=== PATIENT | female | born 1960 | race African-American/Black ===

== ENCOUNTER 2016-04-27 18:49 | Inpatient (IN) | payer OTHER ==
[2016-04-27 19:51] LABS: BASOPHIL 1.5 % (0-2.0); EOSINOPHIL 1.5 % (0-4.5); MCH 31.6 pg (25.7-33.7); MCHC 32.9 g/dl (32.0-36.0); MEAN PLT VOLUME 10.2 fl (7.5-11.1); NEUTROPHILS 68.9 % (42.8-82.8); PLATELET COUNT 231 K/MM3 (134-434); RDW 14.1 % (11.6-15.6); WHITE BLOOD COUNT 5.6 K/mm3 (4.0-10.0)
[2016-04-27] MEDS ORDERED: morphine CARPU-JECT 2 MG/1 ML DISP.SYRIN IVPUSH ONE (19:55)
--- NOTE | 2016-04-27 19:55 | PDOC ---
History of Present Illness - General History Source: Patient Exam Limitations: No Limitations - History of Present Illness Initial Comments: 04/27/16 20:08 The patient is a 55 year old female with a PMHx of diabetes, thyroid disease, GERD, stomach ulcers who presents to the ED with epigastric abdominal pain for 4 months. She states the pain radiates to RUQ and LUQ. Patient reports recently being worked up at [facility] for abdominal pain, including an US, CT, endoscopy that all came back normal. She reports she has no appetite due to pain. She reports only drinking vodka and juice today. She states she is a currently daily alcohol drinker. She denies fever, chills, nausea, vomiting, diarrhea. She denies dysuria or any other urinary complaints. She denies chest pain, SOB, palpitations. <Teri Tarango - Last Filed: 04/27/16 21:38> <Ivana Diane - Last Filed: 04/28/16 21:52> - General Chief Complaint: Pain, Acute Stated Complaint: ABD PAIN Time Seen by Provider: 04/27/16 19:02 Past History <Teri Tarango - Last Filed: 04/27/16 21:38> - Past Medical History Diabetes: Yes Thyroid Disease: Yes Other medical history: GERD, STOMACH ULCER - Psycho/Social/Smoking Cessation Hx Anxiety: No Suicidal Ideation: No Smoking Status: Yes Smoking History: Current some day smoker Years of Tobacco Use: 20 Have you smoked in the past 12 months: No Number of Cigarettes Smoked Daily: 2 Information on smoking cessation initiated: No Hx Alcohol Use: Yes (DAILY WINE) Drug/Substance Use Hx: No Substance Use Type: None <vIana Diane - Last Filed: 04/28/16 21:52> - Past Medical History Allergies/Adverse Reactions: Allergies Allergy/AdvReac Type Severity Reaction Status Date / Time aspirin Allergy Verified 04/27/16 19:02 Penicillins Allergy Verified 04/27/16 19:02 sulfur [From Sulfur-8] Allergy Verified 04/27/16 19:02 sulfur dioxide Allergy Verified 04/27/16 19:02 CHEESE Allergy Uncoded 04/27/16 19:02 Home Medications: Ambulatory Orders Levothyroxine [Synthroid] 50 mcg PO DAILY 03/25/12 Omeprazole 40 mg PO DAILY 04/27/16 Sitagliptin Phosphate [Januvia] 100 mg PO DAILY 04/27/16 Review of Systems - Review of Systems Able to Perform ROS?: Yes Comments:: 04/27/16 20:09 GENERAL/CONSTITUTIONAL: No fever or chills. No weakness. HEAD, EYES, EARS, NOSE AND THROAT: No change in vision. No ear pain or discharge. No sore throat. CARDIOVASCULAR: No chest pain or shortness of breath. RESPIRATORY: No cough, wheezing, or hemoptysis. GASTROINTESTINAL: + epigastric pain, RUQ pain, LUQ pain. No nausea, vomiting, diarrhea or constipation. GENITOURINARY: No dysuria, frequency, or change in urination. MUSCULOSKELETAL: No joint or muscle swelling or pain. No neck or back pain. SKIN: No rash NEUROLOGIC: No headache, vertigo, loss of consciousness, or change in strength/ sensation. ENDOCRINE: No increased thirst. No abnormal weight change. HEMATOLOGIC/LYMPHATIC: No anemia, easy bleeding, or history of blood clots. ALLERGIC/IMMUNOLOGIC: No hives or skin allergy. <Teri Tarango - Last Filed: 04/27/16 21:38> *Physical Exam - Vital Signs Last Vital Signs Temp Pulse Resp BP Pulse Ox 97.9 F 81 19 155/62 95 04/27/16 19:03 04/27/16 19:03 04/27/16 19:03 04/27/16 19:03 04/27/16 19:03 - Physical Exam Comments: 04/27/16 20:09 GENERAL: Awake, alert, and fully oriented, in no acute distress HEAD: No signs of trauma EYES: PERRLA, EOMI, sclera anicteric, conjunctiva clear ENT: Auricles normal inspection, hearing grossly normal, nares patent, oropharynx clear without exudates. Moist mucosa NECK: Normal ROM, supple, no lymphadenopathy, JVD, or masses LUNGS: Breath sounds equal, clear to auscultation bilaterally. No wheezes, and no crackles HEART: Regular rate and rhythm, normal S1 and S2, no murmurs, rubs or gallops ABDOMEN: Moderate epigastric tenderness. Tenderness on side to palpation. Soft, normoactive bowel sounds. No guarding, no rebound. No masses EXTREMITIES: Normal range of motion, no edema. No clubbing or cyanosis. No cords, erythema, or tenderness NEUROLOGICAL: Cranial nerves II through XII grossly intact. Normal speech, normal gait SKIN: Warm, Dry, normal turgor, no rashes or lesions noted. <Teri Tarango - Last Filed: 04/27/16 21:38> - Vital Signs Last Vital Signs Temp Pulse Resp BP Pulse Ox 97.9 F 81 19 155/62 95 04/27/16 19:03 04/27/16 19:03 04/27/16 19:03 04/27/16 19:03 04/27/16 19:03 <Ivana Diane - Last Filed: 04/28/16 21:52> ED Treatment Course - LABORATORY CBC & Chemistry Diagram: 04/27/16 19:20 04/27/16 19:20 - ADDITIONAL ORDERS Additional order review: 04/27/16 19:20 RBC 4.58 MCV 96.0 MCHC 32.9 RDW 14.1 MPV 10.2 Neutrophils % 68.9 D Lymphocytes % 20.1 D Monocytes % 8.0 Eosinophils % 1.5 Basophils % 1.5 - RADIOLOGY Radiograph Interpretation: 04/27/16 21:38 US of Abdomen Reported by: Dr. Kya Brown Impression: Cholelithiasis with wall thickening and without evidence of pericholecystic fluid. Further evaluation is needed to rule out acute cholecystitis. Fatty liver versus hepatocellular disease. Please correlate with liver enzymes. <Teri Tarango - Last Filed: 04/27/16 21:38> - LABORATORY CBC & Chemistry Diagram: 04/28/16 07:05 04/28/16 07:05 - RADIOLOGY Radiology Studies Ordered: Category Date Time Status ABDOMEN US -LIMITED [US] Stat Ultrasound 04/27/16 19:40 Ordered <Ivana Diane - Last Filed: 04/28/16 21:52> Medical Decision Making - Medical Decision Making 04/27/16 19:52 Pt comes with epigastric pain on and off x 4 months. She had sonogram of abdomen 2 weeks ago. It demonstrated a fatty liver and 2 stones in her GB. She had upper endoscopy and lower endoscopy done 2 weeks ago showed only gastric ulcers. Pt was placed on 40 mg omeprazole. 04/28/16 21:49 Pt comes with epigastric pain. She admits that she drank vodka in her OJ; with more probing I found out pt sounds like an alcoholic. Evaluation for pancreatitis shows acute pancreatitis by lab values and exam. Pt's PMD and GI doc have been working her up. Upper endoscopy and lower endoscopy were done recently. Sono done 2 weeks ago showed a gallstone. <Ivana Diane - Last Filed: 04/28/16 21:52> *DC/Admit/Observation/Transfer - Attestations Scribe Attestion: 04/27/16 20:09 Documentation prepared by Teri Tarango, acting as lpn medical assistant for Ivana Diane MD. <Teri Tarango - Last Filed: 04/27/16 21:38> - Discharge Dispostion Admit: Yes <Ivana Diane - Last Filed: 04/28/16 21:52> Diagnosis at time of Disposition: Acute alcoholic pancreatitis, Diabetes, Dehydration - Discharge Dispostion Condition at time of disposition: Poor - Referrals
[2016-04-27] MEDS ORDERED: SODIUM CHLORIDE 0.9% 500 ML INFUS.BAG IV ONE (19:56)
[2016-04-27] MEDS ORDERED: morphine CARPU-JECT 2 MG/1 ML DISP.SYRIN ONE (20:00)
[2016-04-27 20:10] LABS: ALBUMIN 3.7 g/dl (3.4-5.0); ALK PHOS 111 U/L (45-117); ANION GAP 7 (8-16); BILIRUBIN,TOTAL 2.1 mg/dL (0.2-1.0); CO2 32 mmol/L (21-32); CREATININE 0.8 mg/dL (0.55-1.02); GLUCOSE,RANDOM 171 mg/dL (74-106); SGPT/ALT 257 U/L (12-78); TOT PROT 6.9 g/dl (6.4-8.2)
[2016-04-27 20:12] LABS: AMYLASE 1067 U/L (25-115); SGOT/AST 483 U/L (15-37)
[2016-04-27 20:27] LABS: URINE APPEARANCE CLEAR; URINE BILIRUBIN NEGATIVE (NEGATIVE); URINE BLOOD NEGATIVE (NEGATIVE); URINE COLOR YELLOW; URINE GLUCOSE (UA) NEGATIVE (NEGATIVE); URINE KETONE NEGATIVE (NEGATIVE); URINE LEUK ESTERASE NEGATIVE (NEGATIVE); URINE NITRITE NEGATIVE (NEGATIVE); URINE PROTEIN NEGATIVE (NEGATIVE); URINE UROBILINOGEN 2.0 E.U/dl E.U./dl (0.2-1.0)
--- NOTE | 2016-04-27 22:50 | HP ---
CHIEF COMPLAINT: Epigastric pain PCP: Vinay HISTORY OF PRESENT ILLNESS: This is a 55 year old female with past medical history of DM, hypothyroid, GERD , PUD who presented to the ED with a 4 month history of epigastric pain. The pain radiates to her RUQ and LUQ and she has felt much worse for the past 2 days. She underwent a workup at [facility] this week which included upper and lower endoscopy, CT scan and sonogram. Her sono revelaed fatty liver and 2 stones as per the ED note. Her endoscopy was significant for gastric ulcers for which she was started on omeprazole. She admits to a decreased appetite but denies nausea, vomiting or diarrhea. Reports last BM was Saturday during prep for endoscopy. She states that she is a daily alcohol drinker. She did not eat anything today but did have some vodka and juice. ER course was notable for: (1) Lipase 6492 (2) sono with gallstones and GB wall thickening but no CBD dilation (3) elevated AST/ALT Recent Travel: pt denies PAST MEDICAL HISTORY: DM Hypothyroid GERD PUD PAST SURGICAL HISTORY: sinus surgery lumbar fusion via anterior approach as per pt L tib/fib fx s/p ORIF 2010 with residual swelling Social History: Smoking: occasionally smokes in varying amounts Alcohol: daily 4-5 drinks Drugs: occ marijuana Family History: Mother age 64, complications of DM father age 37, asthma Allergies aspirin Allergy (Verified 04/27/16 19:02) Penicillins Allergy (Verified 04/27/16 19:02) sulfur [From Sulfur-8] Allergy (Verified 04/27/16 19:02) sulfur dioxide Allergy (Verified 04/27/16 19:02) CHEESE Allergy (Uncoded 04/27/16 19:02) HOME MEDICATIONS: 3 Medication Instructions Recorded Levothyroxine [Synthroid] 50 mcg PO DAILY 03/25/12 Omeprazole 40 mg PO DAILY 04/27/16 Sitagliptin Phosphate [Januvia] 100 mg PO DAILY 04/27/16 REVIEW OF SYSTEMS CONSTITUTIONAL: Present: loss of appetite Absent: fever, chills, diaphoresis, generalized weakness, malaise, weight change HEENT: Absent: rhinorrhea, nasal congestion, throat pain, throat swelling, difficulty swallowing, mouth swelling, ear pain, eye pain, visual changes CARDIOVASCULAR: Absent: chest pain, syncope, palpitations, irregular heart rate, lightheadedness , peripheral edema RESPIRATORY: Absent: cough, shortness of breath, dyspnea with exertion, orthopnea, wheezing, stridor, hemoptysis GASTROINTESTINAL: Present: abdominal pain, constipation Absent: abdominal distension, nausea, vomiting, diarrhea, melena, hematochezia GENITOURINARY: Absent: dysuria, frequency, urgency, hesitancy, hematuria, flank pain, genital pain MUSCULOSKELETAL: Absent: myalgia, arthralgia, joint swelling, back pain, neck pain SKIN: Absent: rash, itching, pallor HEMATOLOGIC/IMMUNOLOGIC: Absent: easy bleeding, easy bruising, lymphadenopathy, frequent infections ENDOCRINE: Absent: unexplained weight gain, unexplained weight loss, heat intolerance, cold intolerance NEUROLOGIC: Absent: headache, focal weakness or paresthesias, dizziness, unsteady gait, seizure, mental status changes, bladder or bowel incontinence PSYCHIATRIC: Absent: anxiety, depression, suicidal or homicidal ideation, hallucinations. PHYSICAL EXAMINATION Vital Signs - 24 hr 3 04/27/16 04/27/16 19:03 22:19 Temperature 97.9 F 98.6 F Pulse Rate 81 Pulse Rate [ 84 Apical] Respiratory 19 16 Rate Blood Pressure 155/62 Blood Pressure 129/77 [Right Arm] O2 Sat by Pulse 95 99 Oximetry (%) GENERAL: Awake, alert, and fully oriented, in no acute distress. HEAD: Normal with no signs of trauma. EYES: Pupils equal, round and reactive to light, extraocular movements intact, sclera anicteric, conjunctiva clear. No lid lag. EARS, NOSE, THROAT: Ears normal, nares patent, oropharynx clear without exudates. Moist mucous membranes. NECK: Normal range of motion, supple without lymphadenopathy, JVD, or masses. LUNGS: Breath sounds equal, clear to auscultation bilaterally. No wheezes, and no crackles. No accessory muscle use. HEART: Regular rate and rhythm, normal S1 and S2 without murmur, rub or gallop. ABDOMEN: Soft, not distended, normoactive bowel sounds, no guarding, no rebound , no masses. No hepatomegaly or splenomegaly. obese. Tender RUQ and LUQ, slightly tender epigastric MUSCULOSKELETAL: Normal range of motion at all joints. No bony deformities or tenderness. No CVA tenderness. UPPER EXTREMITIES: 2+ pulses, warm, well-perfused. No cyanosis. No clubbing. Cap refill <2 seconds. No peripheral edema. LOWER EXTREMITIES: 2+ pulses, warm, well-perfused. No calf tenderness. No peripheral edema. NEUROLOGICAL: Cranial nerves II-XII intact. Normal speech. Normal gait. PSYCHIATRIC: Cooperative. Good eye contact. Appropriate mood and affect. SKIN: Warm, dry, normal turgor, no rashes or lesions noted. Laboratory Results - last 24 hr 3 04/27/16 04/27/16 04/27/16 19:20 19:20 19:20 WBC 5.6 RBC 4.58 Hgb 14.5 Hct 44.0 MCV 96.0 MCHC 32.9 RDW 14.1 Plt Count 231 MPV 10.2 Neutrophils % 68.9 D Lymphocytes % 20.1 D Monocytes % 8.0 Eosinophils % 1.5 Basophils % 1.5 Sodium 140 Potassium 4.4 Chloride 101 Carbon Dioxide 32 Anion Gap 7 L BUN 5 L D Creatinine 0.8 Creat Clearance w eGFR > 60 Random Glucose 171 H Calcium 9.0 Total Bilirubin 2.1 H D AST 483 H D ALT 257 H D Alkaline Phosphatase 111 D Total Protein 6.9 Albumin 3.7 Total Amylase 1067 H Lipase 6492 H Urine Color Yellow Urine Appearance Clear Urine pH 7.0 Ur Specific [place] 1.005 Urine Protein Negative Urine Glucose (UA) Negative Urine Ketones Negative Urine Blood Negative Urine Nitrite Negative Urine Bilirubin Negative Urine Urobilinogen 2.0 e.u/dl H Ur Leukocyte Esterase Negative ASSESSMENT/PLAN: 55yF with PMH: DM, hypothyroid, GERD, PUD who presented to the ED with epigastric pain radiating to right and left upper quadrants. She is being admitted for cholelithiasis and pancreatitis. Pancreatitis secondary to cholelithiasis - MRCP ordered to r/o choledocholithiasis - CT abd pelvis with po contrast ordered - januvia and alcohol may be contributing as well. hold januvia - GI consult - CXR ordered to r/o pulmonary complications - BISAP score 0 Elevated LFTS - likely due to gallstone although no dilation of CBD, stone may have passed - trend LFTs DM - hold januvia - BGM ACHS with novolog sliding scale - if BGM persistently elevated initiate levemir DVT PPX - heparin 5000u TID FEN - NS @ 83cc/hr - repeat labs in am - NPO for now. Consider clear liquids if feeling better in am Dispo: Pt currently requires inpatient management of her emergent condition. Visit type - Emergency Visit Emergency Visit: Yes ED Registration Date: 04/27/16 Care time: The patient presented to the Emergency Department on the above date and was hospitalized for further evaluation of their emergent condition. - New Patient This patient is new to me today: Yes Date on this admission: 04/28/16 - Critical Care Critical Care patient: No
[2016-04-27] MEDS ORDERED: ONDANSETRON 4 MG/2 ML VIAL IVPB PRN (22:56)
[2016-04-27] MEDS ORDERED: SODIUM CHLORIDE 1,000 ML IV SCH (23:30)
[2016-04-28 00:03] VITALS: BMI 31.3
[2016-04-28] MEDS: LEVOTHYROXINE NA 50 MCG TABLET (FP) PO SCH (06:10)
[2016-04-28] MEDS: HEPARIN NA (PORCINE) 5,000 UNITS/ML 1ML VIAL SQ SCH ×3 (06:11→22:01)
[2016-04-28] MEDS: INSULIN SLIDING SCALE (NOVOLOG) 1 VIAL SQ SCH ×4 (06:13→22:01)
[2016-04-28] MEDS: morphine CARPU-JECT 2 MG/1 ML DISP.SYRIN IVPUSH PRN ×2 (06:14→14:46)
[2016-04-28 07:44] LABS: BASOPHIL 1.3 % (0-2.0); EOSINOPHIL 3.6 % (0-4.5); MCH 32.2 pg (25.7-33.7); MCHC 33.1 g/dl (32.0-36.0); MEAN CELL VOLUME 97.3 fl (80-96); MEAN PLT VOLUME 10.2 fl (7.5-11.1); NEUTROPHILS 64.2 % (42.8-82.8); PLATELET COUNT 215 K/MM3 (134-434); RDW 13.8 % (11.6-15.6); WHITE BLOOD COUNT 4.7 K/mm3 (4.0-10.0)
[2016-04-28 08:10] LABS: ALBUMIN 3.7 g/dl (3.4-5.0); ANION GAP 8 (8-16); CALCIUM 8.9 mg/dL (8.5-10.1); CO2 31 mmol/L (21-32); CREATININE 0.7 mg/dL (0.55-1.02); GLUCOSE,RANDOM 168 mg/dL (74-106); MAGNESIUM 2.1 mg/dL (1.8-2.4); PHOSPHOROUS 3.3 mg/dL (2.5-4.9); SGOT/AST 252 U/L (15-37); SGPT/ALT 258 U/L (12-78)
[2016-04-28 08:12] LABS: ALK PHOS 113 U/L (45-117); BILIRUBIN,TOTAL 2.4 mg/dL (0.2-1.0); TOT PROT 6.8 g/dl (6.4-8.2)
[2016-04-28] MEDS: PANTOPRAZOLE SODIUM 100 ML IVPB SCH (09:29)
[2016-04-28] MEDS ORDERED: HYDROmorphone HCL CARPU-JECT 1 MG/1 ML DISP.SYRIN IVPUSH PRN (15:35)
--- NOTE | 2016-04-28 15:43 | PN ---
Physical Exam: SUBJECTIVE: Patient seen and examined. Her pain is tolerable at present, she is hungry, would like to eat. She denies fever, chills, n/v. OBJECTIVE: Vital Signs Period Temp Pulse Resp BP Sys/Ricardo Pulse Ox Last 24 Hr 98.0 F-98.6 F 50-84 16-20 110-153/72-99 99 PE Neuro: alert, awake, cn 2-12 intact Pulm: CTAB CV: s1 s2 rrr no mrg Abd: RUQ tenderness refers to the LUQ when palpated, pain is intermittent otherwise, soft, +bs Ext: warm, no LE edema Laboratory Results - last 24 hr 04/28/16 04/28/16 04/28/16 06:01 07:05 07:05 WBC 4.7 RBC 4.60 Hgb 14.8 Hct 44.8 MCV 97.3 H MCHC 33.1 RDW 13.8 Plt Count 215 MPV 10.2 Neutrophils % 64.2 Lymphocytes % 23.6 Monocytes % 7.3 Eosinophils % 3.6 D Basophils % 1.3 Sodium 140 Potassium 4.4 Chloride 101 Carbon Dioxide 31 Anion Gap 8 BUN 5 L Creatinine 0.7 Creat Clearance w eGFR > 60 POC Glucometer 137 Random Glucose 168 H Calcium 8.9 Phosphorus 3.3 Magnesium 2.1 Total Bilirubin 2.4 H AST 252 H D ALT 258 H Alkaline Phosphatase 113 Total Protein 6.8 Albumin 3.7 Active Medications Generic Name Dose Route Start Last Admin Trade Name Freq PRN Reason Stop Dose Admin Heparin Sodium (Porcine) 5,000 unit 04/28/16 06:00 04/28/16 14:38 Heparin - SQ 5,000 unit TID JESSIE Administration Pantoprazole Sodium 100 mls @ 200 mls/hr 04/28/16 10:00 04/28/16 09:29 Protonix 40mg Ivpb (Pre-Docked) IVPB 200 mls/hr DAILY JESSIE Administration Lactated Ringer's 1,000 mls @ 100 mls/hr 04/28/16 15:45 Lactated Ringers Solution IV ASDIR JESSIE Insulin Aspart 1 vial 04/28/16 15:33 Novolog Vial Sliding Scale - SQ ACHS [facility] Protocol Levothyroxine Sodium 50 mcg 04/28/16 07:00 04/28/16 06:10 Synthroid - PO 50 mcg ACBK JESSIE Administration Ondansetron HCl 4 mg 04/27/16 22:56 Zofran Injection IVPB Q4H PRN NAUSEA AND/OR VOMITING Assessment: 55 year old female with PMH: DM, hypothyroid, GERD, PUD admitted for cholelithiasis and pancreatitis. Plan: 1. Pancreatitis secondary to cholelithiasis - Possibly due to ETOH, pt drinks daily + gall stones - MRCP ordered to r/o choledocholithiasis - CTAP done; final read pending - Change fluids to LR @100cc/hr - Change to Dilaudid to avoid any spasms - Trial clear diet - GI consult 2. Elevated LFTS - Likely due to gallstone although no dilation of CBD, stone may have passed - Improving, trend LFTs 3. DM II - ISS, BGM ACHS - Hold januvia, also discontinue at discharge as can cause pancreatitis 4. DVT PPX - Heparin 5000u TID Visit type - Emergency Visit Emergency Visit: Yes ED Registration Date: 04/27/16 Care time: The patient presented to the Emergency Department on the above date and was hospitalized for further evaluation of their emergent condition. - New Patient This patient is new to me today: Yes Date on this admission: 04/28/16 - Critical Care Critical Care patient: No - Discharge Referral Referred to [facility] Med P.C.: No
[2016-04-28] MEDS ORDERED: LACTATED RINGERS SOLUTION 1,000 ML IV SCH ×2 (15:45)
--- NOTE | 2016-04-28 16:02 | CON.GI ---
Consult Consult Specialty:: GASTROENTEROLOGY - History of Present Illness Chief Complaint: ABDOMINAL PAIN History of Present Illness: 55 YEAR OLD CHRONIC ALCOHOL USER ADMITTED WITH PANCREATITIS. SHE HAS BEEN C/O OF EPIGASTRIC PAIN SINCE DECEMBER. THIS WEEK HAD EGD AND COLONOSCOPY PLUS CT SCAN OF THE ABDOMEN. SHE WAS TOLD THE CT SCAN WAS NORMAL BUT THE EGD SHOWED SMALL ULCERS AND THE COLONOSCOPY REVEALED BENIGN POLYPS. SHE DRINKS ALCOHOL DAILY A FEW DRINKS A DAY. SHE DRANK YESTERDAY AFTER HER CT SCAN. SHE ALSO TAKES JANUVIA DAILY. SHE DEVELOPED SEVEERE ABDOMINAL PAIN. IN THE ED HER LIVER TESTS WERE ELEVATED AND HER LIPASE WAS OVER 6000. US REVEALED GALLSTONES, NO DILATED DUCTS. CT SCAN WAS DONE BUT HAS NOT YET BEEN READ. SHE CONTINUES TO HAVE PAIN. SHE WAS JUST MEDICATED. SHE STATES THE PAIN IS MANLY IN THE RUQ AND SOME IN THE EPIGASTRIC AREA. 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: No: Alzheimer's, CVA, Dementia, Migraine, Multiple Sclerosis, Peripheral Neuropathy, Parkinson's, Seizure, Syncope, TIA, Vertigo, Other Cardio/Vascular: No: AFIB, Aneurysm, Aortic Insufficiency, Aortic Stenosis, CAD , CHF, Deep Vein Thrombosis, HTN, Hyperlipdemia, AR, Mitral Insufficiency, Mitral Stenosis, Murmur, Pulmonary Hypertension, Other Pulmonary: No: Asthma, Bronchitis, Cancer, COPD, O2 Dependent, Pneumonia, Previously Intubated, Pulmonary Embolus, Pulmonary Fibrosis, Sleep Apnea, Other Gastrointestinal: Yes: Peptic Ulcer Disease Hepatobiliary: No: Cirrhosis, Cholelithiasis, Cholecystitis, Choledocholithiasis , Hepatitis A, Hepatitis B, Hepatitis C, Other Renal/: No: Renal Failure, Renal Inusuff, BPH, Cancer, Hematuria, Hemodialysis , Neurogenic Bladder, Renal Calculi, UTI, Other Reproductive: No: Ectopic , Endometriosis, Fibroids, PID, Polycystic Ovary Syndrome, Postmenopausal, Other Heme/Onc: No: Anemia, B12 Deficiency, Bleeding Disorder, Cancer, Current Chemotherapy, Current Radiation Therapy, Hemochromatosis, Hypercoaguable State, Myeloproliferative Synd, Sickle Cell Disease, Sickle Cell Trait, Thrombocytopenia, Other Infectious Disease: No: AIDS, C-Diff, Herpes Zoster, HIV, MRSA, STD's, Tuberculosis, VREF, Other Musculoskeletal: Yes: Chronic low back pain (L5/S1 FUSION) Endocrine: Yes: Diabetes Mellitus - Past Surgical History Past Surgical History: Yes: Colonoscopy, Laminectomy, Upper Endoscopy - Alcohol/Substance Use Hx Alcohol Use: Yes (DAILY WINE AND VODKA) - Smoking History Smoking history: Current some day smoker Have you smoked in the past 12 months: No Aproximately how many cigarettes per day: 2 Home Medications - Allergies Allergies/Adverse Reactions: Allergies Allergy/AdvReac Type Severity Reaction Status Date / Time aspirin Allergy Verified 04/27/16 19:02 Penicillins Allergy Verified 04/27/16 19:02 sulfur [From Sulfur-8] Allergy Verified 04/27/16 19:02 sulfur dioxide Allergy Verified 04/27/16 19:02 CHEESE Allergy Uncoded 04/27/16 19:02 - Home Medications Home Medications: Ambulatory Orders Levothyroxine [Synthroid] 50 mcg PO DAILY 03/25/12 Omeprazole 40 mg PO DAILY 04/27/16 Sitagliptin Phosphate [Januvia] 100 mg PO DAILY 04/27/16 Family Disease History - Family Disease History Family History: Unremarkable Review of Systems - Review of Systems Constitutional: reports: Chills, Loss of Appetite Eyes: reports: No Symptoms HENT: reports: No Symptoms Neck: reports: No Symptoms Cardiovascular: reports: No Symptoms Respiratory: reports: No Symptoms Gastrointestinal: reports: Abdominal Pain, Nausea, Vomiting Genitourinary: reports: No Symptoms Musculoskeletal: reports: No Symptoms Integumentary: reports: No Symptoms Neurological: reports: No Symptoms Endocrine: reports: No Symptoms Hematology/Lymphatic: reports: No Symptoms Psychiatric: reports: No Symptoms Physical Exam-GI Vital Signs: Vital Signs Temperature 98.0 F 04/28/16 14:06 Pulse Rate 76 04/28/16 14:06 Respiratory Rate 20 04/28/16 09:00 Blood Pressure 153/88 04/28/16 14:06 O2 Sat by Pulse Oximetry (%) 99 04/27/16 22:19 Constitutional: Yes: Well Nourished, Mild Distress Eyes: Yes: Conjunctiva Clear HENT: Yes: Normocephalic Neck: Yes: Trachea Midline Cardiovascular: Yes: Regular Rate and Rhythm Respiratory: Yes: Regular, Other (DECREASED BREATH SOUNDS) Gastrointestinal Inspection: Yes: Distention ...Auscultate: Yes: Hypoactive Bowel Sounds ...Palpate: Yes: Hepatomegaly, Soft, Tenderness, Epigastium, Other (RUQ PAIN, NO GUARDING OR REBOUND) ...Rectal Exam: Yes: Deferred Genitourinary: Yes: WNL Musculoskeletal: Yes: WNL Extremities: Yes: WNL Neurological: Yes: Alert, Oriented Psychiatric: Yes: Alert, Oriented Labs: CBC, BMP 04/28/16 07:05 04/28/16 07:05 Laboratory Tests 04/27/16 04/28/16 04/28/16 19:20 07:05 07:05 WBC 4.7 RBC 4.60 Hgb 14.8 Hct 44.8 MCV 97.3 H MCHC 33.1 RDW 13.8 Plt Count 215 MPV 10.2 Neutrophils % 64.2 Lymphocytes % 23.6 Monocytes % 7.3 Eosinophils % 3.6 D Basophils % 1.3 Sodium 140 Potassium 4.4 Chloride 101 Carbon Dioxide 31 Anion Gap 8 BUN 5 L Creatinine 0.7 Creat Clearance w eGFR > 60 POC Glucometer Random Glucose 168 H Calcium 8.9 Phosphorus 3.3 Magnesium 2.1 Total Bilirubin 2.1 H D 2.4 H AST 483 H D 252 H D ALT 257 H D 258 H Alkaline Phosphatase 111 D 113 Total Protein 6.9 6.8 Albumin 3.7 3.7 Total Amylase 1067 H Lipase 6492 H 04/28/16 11:18 WBC RBC Hgb Hct MCV MCHC RDW Plt Count MPV Neutrophils % Lymphocytes % Monocytes % Eosinophils % Basophils % Sodium Potassium Chloride Carbon Dioxide Anion Gap BUN Creatinine Creat Clearance w eGFR POC Glucometer 137 Random Glucose Calcium Phosphorus Magnesium Total Bilirubin AST ALT Alkaline Phosphatase Total Protein Albumin Total Amylase Lipase Imaging - Results Cat Scan: Image Reviewed Ultrasound: Report Reviewed, Image Reviewed Problem List - Problems (1) Pancreatitis Assessment/Plan: HER ALCOHOL, HER GALLSTONES AND HER JANUVIA CAN ALL CAUSE PANCREATITIS. BY REVIEW OF HISTORY, SCANS AND LABS IT SEEMS TO BE RELATED TO CHOLECYSTITIS AND GALLSTONE PANCREATITIS. AWAIT RESULTS OF CT SCAN. KEEP HER NPO, FOLLOW LIPASE AND LFT'S, AGREE WITH DILAUDID, AND WILL INCREASE IV FLUID TO 150 CC/HR WATCH FOR WITHDRAWAL SYMPTOMS Code(s): K85.9 - ACUTE PANCREATITIS, UNSPECIFIED * DO NOT USE * (2) Gallstones and inflammation of gallbladder without obstruction Assessment/Plan: ABOVE , AGREE WITH MRCP Code(s): K80.00 - CALCULUS OF GALLBLADDER W ACUTE CHOLECYST W/O OBSTRUCTION (3) Diabetes Code(s): E11.9 - TYPE 2 DIABETES MELLITUS WITHOUT COMPLICATIONS
[2016-04-28] MEDS: HYDROmorphone HCL CARPU-JECT 1 MG/1 ML DISP.SYRIN IVPB PRN (22:02)
[2016-04-29] MEDS: HYDROmorphone HCL CARPU-JECT 1 MG/1 ML DISP.SYRIN IVPB PRN ×3 (01:55→21:28)
[2016-04-29] MEDS: INSULIN SLIDING SCALE (NOVOLOG) 1 VIAL SQ SCH ×4 (06:06→22:03)
[2016-04-29] MEDS: HEPARIN NA (PORCINE) 5,000 UNITS/ML 1ML VIAL SQ SCH ×3 (06:06→21:27)
[2016-04-29] MEDS: LEVOTHYROXINE NA 50 MCG TABLET (FP) PO SCH (06:06)
[2016-04-29 08:53] LABS: BASOPHIL 1.6 % (0-2.0); EOSINOPHIL 4.9 % (0-4.5); MCH 32.6 pg (25.7-33.7); MCHC 33.4 g/dl (32.0-36.0); MEAN CELL VOLUME 97.6 fl (80-96); MEAN PLT VOLUME 10.1 fl (7.5-11.1); NEUTROPHILS 57.6 % (42.8-82.8); PLATELET COUNT 219 K/MM3 (134-434); RDW 13.7 % (11.6-15.6); WHITE BLOOD COUNT 5.6 K/mm3 (4.0-10.0)
[2016-04-29 08:59] LABS: ALBUMIN 3.5 g/dl (3.4-5.0); ANION GAP 8 (8-16); BILIRUBIN,TOTAL 1.2 mg/dL (0.2-1.0); CALCIUM 8.6 mg/dL (8.5-10.1); CO2 28 mmol/L (21-32); CREATININE 0.5 mg/dL (0.55-1.02); GLUCOSE,RANDOM 111 mg/dL (74-106); SGOT/AST 59 U/L (15-37); SGPT/ALT 153 U/L (12-78); TOT PROT 6.5 g/dl (6.4-8.2)
[2016-04-29 09:00] LABS: ALK PHOS 103 U/L (45-117)
[2016-04-29] MEDS: PANTOPRAZOLE SODIUM 100 ML IVPB SCH (09:57)
--- NOTE | 2016-04-29 11:17 | CONSULT ---
- Consultation REQUESTING PROVIDER: Mariano Dow MEAL TEMPERER CONSULT REQUEST: CTSP for evaluation and management of abdominal pain possibly be due to symptomatic gallbladder disease on w/u PCP:Sayda Dow HISTORY OF PRESENT ILLNESS: Patient presented w/ RUQ abdominal pain; recently had a n outpatient w/u as well; w/u to date reviewed; she continuew to drink on a daily basis; she has pain despite being npo and w/o s's and s's of acute cholecystitis. PMHx: reviewed; she reports daily alcohol use PSHx: laminectomy Home Medications Medication Instructions Recorded Levothyroxine [Synthroid] 50 mcg PO DAILY 03/25/12 Omeprazole 40 mg PO DAILY 04/27/16 Sitagliptin Phosphate [Januvia] 100 mg PO DAILY 04/27/16 Allergies Allergy/AdvReac Type Severity Reaction Status Date / Time aspirin Allergy Verified 04/27/16 19:02 Penicillins Allergy Verified 04/27/16 19:02 sulfur [From Sulfur-8] Allergy Verified 04/27/16 19:02 sulfur dioxide Allergy Verified 04/27/16 19:02 CHEESE Allergy Uncoded 04/27/16 19:02 REVIEW OF SYSTEMS: CONSTITUTIONAL: Absent: fever, chills, diaphoresis, generalized weakness, malaise, loss of appetite, weight change CARDIOVASCULAR: Absent: chest pain, syncope, palpitations, irregular heart rate, lightheadedness , peripheral edema RESPIRATORY: Absent: cough, shortness of breath, dyspnea with exertion, wheezing, stridor, hemoptysis GASTROINTESTINAL: Absent: positive abdominal pain, no abdominal distension, nausea, vomiting, diarrhea, constipation, melena, hematochezia GENITOURINARY: Absent: dysuria, frequency, urgency, hesitancy, hematuria, flank pain, genital pain MUSCULOSKELETAL: Absent: myalgia, arthralgia, joint swelling, low back pain, neck pain SKIN: Absent: rash, itching, pallor HEMATOLOGIC/IMMUNOLOGIC: Absent: easy bleeding, easy bruising, lymphadenopathy NEUROLOGIC: Absent: headache, focal weakness, paresthesias, dizziness, unsteady gait, seizure, mental status changes, bladder or bowel incontinence PSYCHIATRIC: Absent: anxiety, depression, suicidal or homicidal ideation, hallucinations. PHYSICAL EXAM: GENERAL: Awake, alert, and fully oriented, in no acute distress. HEAD: Normal with no signs of trauma. EYES: PERRL, sclera anicteric, conjunctiva clear. NECK: Normal ROM, supple without lymphadenopathy, JVD, or masses. ABDOMEN: Soft, nontender, not distended, normoactive bowel sounds, no guarding, no rebound, no masses. No organomegaly. No scars; no hernias MUSCULOSKELETAL: Normal ROM at all joints. No bony deformities or tenderness. No CVA tenderness. UPPER EXTREMITIES: 2+ pulses, warm, well-perfused. No cyanosis. Cap refill <2 seconds. No peripheral edema. LOWER EXTREMITIES: 2+ pulses, warm, well-perfused. No calf tenderness. No peripheral edema. NEUROLOGICAL: Normal speech, gait not observed. PSYCH: Cooperative. Good eye contact. Appropriate mood and affect. SKIN: Warm, dry, normal turgor, no rashes or lesions noted. Vital Signs Temperature 98.3 F 04/29/16 06:00 Pulse Rate 72 04/29/16 06:00 Respiratory Rate 18 04/29/16 02:00 Blood Pressure 143/93 04/29/16 06:00 O2 Sat by Pulse Oximetry (%) 99 04/28/16 21:00 Lab Results WBC 5.6 K/mm3 (4.0-10.0) 04/29/16 07:50 RBC 4.48 M/mm3 (3.60-5.2) 04/29/16 07:50 Hgb 14.6 GM/dL (10.7-15.3) 04/29/16 07:50 Hct 43.7 % (32.4-45.2) 04/29/16 07:50 MCV 97.6 fl (80-96) H 04/29/16 07:50 MCHC 33.4 g/dl (32.0-36.0) 04/29/16 07:50 RDW 13.7 % (11.6-15.6) 04/29/16 07:50 Plt Count 219 K/MM3 (134-434) 04/29/16 07:50 Sodium 138 mmol/L (136-145) 04/29/16 07:50 Potassium 4.1 mmol/L (3.5-5.1) 04/29/16 07:50 Chloride 102 mmol/L (98-107) 04/29/16 07:50 Carbon Dioxide 28 mmol/L (21-32) 04/29/16 07:50 Anion Gap 8 (8-16) 04/29/16 07:50 BUN 4 mg/dL (7-18) L 04/29/16 07:50 Creatinine 0.5 mg/dL (0.55-1.02) L D 04/29/16 07:50 Random Glucose 111 mg/dL (74-106) H D 04/29/16 07:50 Calcium 8.6 mg/dL (8.5-10.1) 04/29/16 07:50 US/CT/MRI reviewed IMP: ? ETOH pancreatitis; cholelithiasis; doubt acute cholecystitis given absence of fever and elevated WBC and clinically negative exam not c/w patients c/o. PLAN: Continue NPO/IVF/PPI's; trend LFT's amylase and lipase; will f/u. Shailesh Hernandes MD FACS Visit type - Case Type Case Type: ED Admission - Emergency Emergency Visit: Yes ED Registration Date: 04/27/16 Care time: The patient presented to the Emergency Department on the above date and was hospitalized for further evaluation of their emergent condition. - New patient This patient is new to me today: Yes Date on this admission: 04/29/16 - Critical Care Critical Care patient: No
[2016-04-29] MEDS ORDERED: diphenhydrAMINE HCL 25 MG CAPSULE (FP) PO PRN (13:00)
[2016-04-29] MEDS ORDERED: ARTIFICIAL TEARS (POLYVINYL ALCOHOL 1.4%) OPTH DROPS OU ONE (13:00)
[2016-04-29] MEDS ORDERED: methylPREDNISolone NA SUCC 125 MG/2 ML VIAL IVPB ONE (14:14)
[2016-04-29] MEDS ORDERED: FAMOTIDINE 20 MG/50 ML IVPB 50 ML IVPB ONE (14:14)
[2016-04-29] MEDS ORDERED: chlordiazePOXIDE HCL 25 MG CAPSULE PO PRN (14:15)
--- NOTE | 2016-04-29 14:19 | PN ---
Physical Exam: SUBJECTIVE: Patient seen and examined. She is upset, she did not like what the surgeon said to her. She is distressed over her Left eye and dose not want to talk about her etoh habit right now. She is itching her eye continuously, stated early she was feeling sob. OBJECTIVE: Vital Signs Period Temp Pulse Resp BP Sys/Ricardo Pulse Ox Last 24 Hr 98 F-98.4 F 68-75 18-20 142-148/73-93 99 PE Gen: agitated Neuro: alert, awake, cn 2-12 intact HEENT: L eye edema, erythema, purtitis, lid lag with edema Pulm: CTAB CV: s1 s2 rrr no mrg Abd: RUQ tenderness refers to the LUQ when palpated- Improved, however still grimaces to touch Ext: warm, no LE edema CBCD WBC 5.6 K/mm3 (4.0-10.0) 04/29/16 07:50 RBC 4.48 M/mm3 (3.60-5.2) 04/29/16 07:50 Hgb 14.6 GM/dL (10.7-15.3) 04/29/16 07:50 Hct 43.7 % (32.4-45.2) 04/29/16 07:50 MCV 97.6 fl (80-96) H 04/29/16 07:50 MCHC 33.4 g/dl (32.0-36.0) 04/29/16 07:50 RDW 13.7 % (11.6-15.6) 04/29/16 07:50 Plt Count 219 K/MM3 (134-434) 04/29/16 07:50 MPV 10.1 fl (7.5-11.1) 04/29/16 07:50 CMP Sodium 138 mmol/L (136-145) 04/29/16 07:50 Potassium 4.1 mmol/L (3.5-5.1) 04/29/16 07:50 Chloride 102 mmol/L (98-107) 04/29/16 07:50 Carbon Dioxide 28 mmol/L (21-32) 04/29/16 07:50 Anion Gap 8 (8-16) 04/29/16 07:50 BUN 4 mg/dL (7-18) L 04/29/16 07:50 Creatinine 0.5 mg/dL (0.55-1.02) L D 04/29/16 07:50 Creat Clearance w eGFR > 60 (>60) 04/29/16 07:50 Calcium 8.6 mg/dL (8.5-10.1) 04/29/16 07:50 Total Bilirubin 1.2 mg/dL (0.2-1.0) H D 04/29/16 07:50 AST 59 U/L (15-37) H D 04/29/16 07:50 ALT 153 U/L (12-78) H D 04/29/16 07:50 Alkaline Phosphatase 103 U/L (45-117) 04/29/16 07:50 Total Protein 6.5 g/dl (6.4-8.2) 04/29/16 07:50 Albumin 3.5 g/dl (3.4-5.0) 04/29/16 07:50 04/28/16 04/29/16 18:25 07:50 Lipase 360 145 Active Medications Generic Name Dose Route Start Last Admin Trade Name Freq PRN Reason Stop Dose Admin Artificial Tears 1 drop 04/29/16 13:00 Artificial Tears OU 04/29/16 13:01 ONCE ONE Chlordiazepoxide HCl 50 mg 04/29/16 11:00 Librium - PO 04/30/16 05:01 [id number] JESSIE Chlordiazepoxide HCl 25 mg 04/29/16 14:15 Librium - PO 05/02/16 14:14 Q4H PRN WITHDRAWAL(CONT SUBST) Chlordiazepoxide HCl 25 mg 04/30/16 11:00 Librium - PO 05/01/16 05:01 [id number] JESSIE Chlordiazepoxide HCl 15 mg 05/01/16 11:00 Librium - PO 05/02/16 05:01 [id number] JESSIE Diphenhydramine HCl 25 mg 04/29/16 13:00 04/29/16 13:13 Benadryl - PO 25 mg Q6H PRN Administration FOR ITCHING Heparin Sodium (Porcine) 5,000 unit 04/28/16 06:00 04/29/16 06:06 Heparin - SQ 5,000 unit TID JESSIE Administration Hydromorphone HCl 1 mg 04/28/16 21:55 02/26/17 09:06 Dilaudid Injection - IVPB 1 mg Q4H PRN Administration PAIN Pantoprazole Sodium 100 mls @ 200 mls/hr 04/28/16 10:00 04/29/16 09:57 Protonix 40mg Ivpb (Pre-Docked) IVPB 200 mls/hr DAILY JESSIE Administration Lactated Ringer's 1,000 mls @ 150 mls/hr 04/28/16 15:45 04/28/16 15:53 Lactated Ringers Solution IV 150 mls/hr ASDIR JESSIE Administration Famotidine/Sodium Chloride 50 mls @ 100 mls/hr 04/29/16 14:14 Pepcid 20 Mg Premixed Ivpb - IVPB 04/29/16 14:43 ONCE ONE Insulin Aspart 1 vial 04/28/16 15:33 04/29/16 12:09 Novolog Vial Sliding Scale - SQ Not Given ACHS JESSIE Protocol Levothyroxine Sodium 50 mcg 04/28/16 07:00 04/29/16 06:06 Synthroid - PO 50 mcg ACBK JESSIE Administration Ondansetron HCl 4 mg 04/27/16 22:56 Zofran Injection IVPB Q4H PRN NAUSEA AND/OR VOMITING Assessment: 55 year old female with PMH: DM, hypothyroid, GERD, PUD admitted for cholelithiasis and pancreatitis. Plan: 1. Pancreatitis secondary to cholelithiasis - Possibly due to ETOH, medication, gallstone - MRCP shows cholelithiasis, suggestive of acute cholecystitis, no evidence of choledocholiasis - LR @150cc/hr - Dilaudid PRN q4h - Lipase wnl - Advance diet per GI 2. Neurotic Angioedema - Etiology unknown, possibly environmental vs MRI dye? - No respiratory compromise - Solumedrol 125mg now - Benadryl 50mg now - Pepcid x1 now - Monitor response 3. ETOH withdrawal - Will start librium detox - Pt refusing however, states she has never had DT's 4. Elevated LFTS - Down trending 5. DM II - ISS, BGM ACHS - Hold januvia, also discontinue at discharge as can cause pancreatitis 6. DVT PPX - Heparin 5000u TID Visit type - Emergency Visit Emergency Visit: Yes ED Registration Date: 04/27/16 Care time: The patient presented to the Emergency Department on the above date and was hospitalized for further evaluation of their emergent condition. - New Patient This patient is new to me today: No - Critical Care Critical Care patient: No
--- NOTE | 2016-04-29 15:45 | PN ---
GI Progress Note Subjective: GASTROENTEROLOGY STILL WITH SOME UPPER RIGHT QUADRANT PAIN LIPASE HAS NORMALIZED CT SCAN SHOWS SOME FLUID AROUND GB - Objective Vital Signs: Vital Signs Temperature 97.7 F 04/29/16 14:28 Pulse Rate 68 04/29/16 14:28 Respiratory Rate 20 04/29/16 09:00 Blood Pressure 157/86 04/29/16 14:28 O2 Sat by Pulse Oximetry (%) 99 04/28/16 21:00 Constitutional: No Distress Eyes: Yes: Other (PERIORBITAL EDEMA) HENT: Yes: WNL Neck: Yes: WNL Cardiovascular: Yes: WNL Respiratory: Yes: WNL Gastrointestinal Inspection: Yes: Distention ...Auscultate: Yes: Normoactive Bowel Sounds ...Palpate: Yes: Tenderness (RUQ WITHOUT GUARDING/REBOUND) Neurological: Yes: WNL Labs: CBC, BMP 04/29/16 07:50 04/29/16 07:50 Laboratory Tests 04/27/16 04/28/16 04/29/16 19:20 18:25 07:50 Total Bilirubin 1.2 H D AST 59 H D ALT 153 H D Alkaline Phosphatase 103 Lipase 6492 H 360 04/29/16 07:50 Total Bilirubin AST ALT Alkaline Phosphatase Lipase 145 Problem List - Problems (1) Gallstones and inflammation of gallbladder without obstruction Assessment/Plan: SOME IMPROVEMENT , WILL START CLEARS, CT SCAN DOES SHOW SOME FLUID AROUND GB, PANCREAS OK FOR HIDA SCAN Code(s): K80.00 - CALCULUS OF GALLBLADDER W ACUTE CHOLECYST W/O OBSTRUCTION (2) Pancreatitis Code(s): K85.9 - ACUTE PANCREATITIS, UNSPECIFIED * DO NOT USE * (3) Diabetes Code(s): E11.9 - TYPE 2 DIABETES MELLITUS WITHOUT COMPLICATIONS
[2016-04-29] MEDS ORDERED: LACTATED RINGERS SOLUTION 1,000 ML IV SCH (16:55)
[2016-04-29] MEDS: chlordiazePOXIDE HCL 25 MG CAPSULE PO SCH ×3 (17:04→23:20)
[2016-04-29] MEDS: LACTATED RINGERS SOLUTION 1,000 ML IV SCH (18:53)
[2016-04-29] MEDS ORDERED: INSULIN (NOVOLOG) ASPART 100 UNITS/ML 10ML VIAL ONE (21:25)
[2016-04-30] MEDS: chlordiazePOXIDE HCL 25 MG CAPSULE PO SCH ×4 (05:40→22:51)
[2016-04-30] MEDS: LEVOTHYROXINE NA 50 MCG TABLET (FP) PO SCH (06:17)
[2016-04-30] MEDS: INSULIN SLIDING SCALE (NOVOLOG) 1 VIAL SQ SCH ×4 (06:18→21:14)
[2016-04-30] MEDS: HEPARIN NA (PORCINE) 5,000 UNITS/ML 1ML VIAL SQ SCH ×3 (06:18→21:12)
[2016-04-30 07:54] LABS: ALBUMIN 3.5 g/dl (3.4-5.0); ANION GAP 10 (8-16); BILIRUBIN,TOTAL 0.9 mg/dL (0.2-1.0); CALCIUM 9.3 mg/dL (8.5-10.1); CO2 29 mmol/L (21-32); CREATININE 0.6 mg/dL (0.55-1.02); GLUCOSE,RANDOM 121 mg/dL (74-106); SGOT/AST 27 U/L (15-37); SGPT/ALT 105 U/L (12-78); TOT PROT 6.5 g/dl (6.4-8.2)
[2016-04-30 07:55] LABS: ALK PHOS 94 U/L (45-117)
[2016-04-30] MEDS: PANTOPRAZOLE SODIUM 100 ML IVPB SCH (10:08)
[2016-04-30] MEDS: LACTATED RINGERS SOLUTION 1,000 ML IV SCH ×2 (10:12→17:23)
[2016-04-30] MEDS ORDERED: INSULIN (NOVOLOG) ASPART 100 UNITS/ML 10ML VIAL ONE (11:11)
[2016-04-30] MEDS ORDERED: methylPREDNISolone NA SUCC 40 MG/1 ML VIAL IVPB ONE (11:30)
[2016-04-30] MEDS: HYDROmorphone HCL CARPU-JECT 1 MG/1 ML DISP.SYRIN IVPB PRN (11:56)
--- NOTE | 2016-04-30 11:58 | PN ---
Physical Exam: SUBJECTIVE: Patient seen and examined. She tolerated clears, she still has abdominal pain when palpated, denies withdrawal symptoms, still itching L eye. OBJECTIVE: Vital Signs Period Temp Pulse Resp BP Sys/Ricardo Pulse Ox Last 24 Hr 97.7 F-97.7 F 68-85 20-20 150-157/76-89 99 PE Neuro: alert, awake, cn 2-12 intact HEENT: L eye edema- Improved no erythema, purtitis, able to fully open eye Pulm: CTAB CV: s1 s2 rrr no mrg Abd: RUQ tenderness refers to the LUQ when palpated Ext: warm, no LE edema Laboratory Results - last 24 hr 04/30/16 04/30/16 06:25 11:05 Sodium 139 Potassium 4.2 Chloride 100 Carbon Dioxide 29 Anion Gap 10 BUN 5 L D Creatinine 0.6 Creat Clearance w eGFR > 60 POC Glucometer 153 Random Glucose 121 H Calcium 9.3 Total Bilirubin 0.9 D AST 27 D ALT 105 H D Alkaline Phosphatase 94 Total Protein 6.5 Albumin 3.5 Lipase 133 Active Medications Generic Name Dose Route Start Last Admin Trade Name Freq PRN Reason Stop Dose Admin Chlordiazepoxide HCl 25 mg 04/29/16 14:15 Librium - PO 05/02/16 14:14 Q4H PRN WITHDRAWAL(CONT SUBST) Chlordiazepoxide HCl 25 mg 04/30/16 11:00 04/30/16 11:02 Librium - PO 05/01/16 05:01 Not Given [id number] JESSIE Chlordiazepoxide HCl 15 mg 05/01/16 11:00 Librium - PO 05/02/16 05:01 [id number] JESSIE Diphenhydramine HCl 25 mg 04/29/16 13:00 04/29/16 13:13 Benadryl - PO 25 mg Q6H PRN Administration FOR ITCHING Heparin Sodium (Porcine) 5,000 unit 04/28/16 06:00 04/30/16 06:18 Heparin - SQ 5,000 unit TID JESSIE Administration Hydromorphone HCl 1 mg 04/28/16 21:55 04/30/16 11:56 Dilaudid Injection - IVPB 1 mg Q4H PRN Administration PAIN Pantoprazole Sodium 100 mls @ 200 mls/hr 04/28/16 10:00 04/30/16 10:08 Protonix 40mg Ivpb (Pre-Docked) IVPB 200 mls/hr DAILY JESSIE Administration Lactated Ringer's 1,000 mls @ 100 mls/hr 04/29/16 17:00 04/30/16 10:12 Lactated Ringers Solution IV 100 mls/hr ASDIR JESSIE Administration Insulin Aspart 1 vial 04/28/16 15:33 04/30/16 11:06 Novolog Vial Sliding Scale - SQ 2 units ACHS JESSIE Administration Protocol Levothyroxine Sodium 50 mcg 04/28/16 07:00 04/30/16 06:17 Synthroid - PO 50 mcg ACBK JESSIE Administration Ondansetron HCl 4 mg 04/27/16 22:56 Zofran Injection IVPB Q4H PRN NAUSEA AND/OR VOMITING Imaging: - MRCP shows cholelithiasis, suggestive of acute cholecystitis, no evidence of choledocholiasis Assessment: 55 year old female with PMHx: DM, hypothyroid, GERD, PUD admitted for cholelithiasis and pancreatitis. Plan: 1. Pancreatitis secondary to cholelithiasis, possibly acute cholecystitis - For HIDA scan today - No infectious signs; fever, leukocytosis - Pending read of HIDA will schedule for cholecysectomy - D/w above with surgery 2. Acute neurotic Angioedema - Improved s/p steroids yesterday - Will give x1 dose Benadryl 25mg and solumedrol 40mg x1 3. ETOH withdrawal - PT refusing librium detox 4. Elevated LFTS - Down trending 5. DM II - ISS, BGM ACHS - Discontinue januvia on discharge 6. DVT PPX - Heparin 5000u TID 7. FEN - LR 100cc while NPO - Can stop fluids, and start full liquids when return from hida Visit type - Emergency Visit Emergency Visit: Yes ED Registration Date: 04/27/16 Care time: The patient presented to the Emergency Department on the above date and was hospitalized for further evaluation of their emergent condition. - New Patient This patient is new to me today: No - Critical Care Critical Care patient: No
[2016-04-30] MEDS ORDERED: HYDROmorphone HCL CARPU-JECT 1 MG/1 ML DISP.SYRIN IVPB PRN (12:01)
--- NOTE | 2016-04-30 13:13 | PN ---
Progress Note (short form) - Note Progress Note: Attending Surgeon: Seen in f/u; c/o mild RUQ roya w/ radiation across epigastrium; no nausea/no vomiting. VSS AF abdomen soft; flat; minimal if any tenderness to deep palpation in the RUQ; o/w negative. IMP; acute bobby; symptomatic biliary colic; cholelithiasis PLAN: continue present tx; HIDA today; possible lap bobby tomorrow; d/w the patient r/b/t alternatives as well as conversion to an open procedure. Shailesh Hernandes MD FACS
--- NOTE | 2016-04-30 18:04 | PN ---
GI Progress Note Subjective: JNo acute events No HIDA scan today Describes mild RUQ pain Describes having only three glasses of wine last week - Objective Vital Signs: Vital Signs Temperature 98.1 F 04/30/16 14:00 Pulse Rate 82 04/30/16 14:00 Respiratory Rate 20 04/30/16 14:00 Blood Pressure 135/62 04/30/16 14:00 O2 Sat by Pulse Oximetry (%) 97 04/30/16 09:00 Constitutional: Calm Eyes: No: Sclera Icterus Cardiovascular: Yes: Regular Rate and Rhythm Respiratory: Yes: CTA Bilaterally Gastrointestinal Inspection: No: Distention ...Auscultate: Yes: Normoactive Bowel Sounds ...Palpate: Yes: Tenderness (Mild TTP RUQ) Edema: No Neurological: Yes: Alert, Oriented Labs: CBC, BMP 04/29/16 07:50 04/30/16 06:25 Problem List - Problems (1) Gallstones and inflammation of gallbladder without obstruction Assessment/Plan: +/- HIDA tomorrow: evaluated by surgery today Advised alcohol cessation Continue current treatment course Code(s): K80.00 - CALCULUS OF GALLBLADDER W ACUTE CHOLECYST W/O OBSTRUCTION
[2016-05-01] MEDS: chlordiazePOXIDE HCL 25 MG CAPSULE PO SCH (05:30)
[2016-05-01] MEDS: LACTATED RINGERS SOLUTION 1,000 ML IV SCH (05:58)
[2016-05-01] MEDS: LEVOTHYROXINE NA 50 MCG TABLET (FP) PO SCH (06:03)
[2016-05-01] MEDS: HEPARIN NA (PORCINE) 5,000 UNITS/ML 1ML VIAL SQ SCH ×3 (06:03→21:40)
[2016-05-01] MEDS: INSULIN SLIDING SCALE (NOVOLOG) 1 VIAL SQ SCH ×3 (06:06→21:41)
[2016-05-01] MEDS ORDERED: LACTATED RINGERS SOLUTION 1,000 ML IV SCH ×2 (07:40→15:26)
[2016-05-01 08:07] LABS: HEP B SURFACE AB Non Reactive (.)
[2016-05-01] MEDS: PANTOPRAZOLE SODIUM 100 ML IVPB SCH (10:39)
[2016-05-01] MEDS ORDERED: chlordiazePOXIDE 5 MG CAPSULE PO SCH ×2 (11:00→17:00)
[2016-05-01 12:53] LABS: INR 1.05 (0.82-1.09); PROTHROMBIN TIME (PATIENT) 11.6 SEC (9.98-11.88)
[2016-05-01] MEDS ORDERED: PROPOFOL 20 ML ONE (13:18)
[2016-05-01] MEDS ORDERED: ROCURONIUM BROMIDE 50 MG/5 ML VIAL ONE (13:18)
[2016-05-01] MEDS ORDERED: MIDAZOLAM HCL 2 MG/2 ML SINGLE DOSE VIAL ONE (13:18)
[2016-05-01] MEDS ORDERED: KETOROLAC TROMETHAMINE 30 MG/1 ML VIAL ONE (13:18)
[2016-05-01] MEDS ORDERED: DEXAMETHASONE SOD PHOSPHATE 4 MG/1 ML VIAL ONE (13:18)
[2016-05-01] MEDS ORDERED: CLINDAMYCIN PHOSPHATE 600 MG/4 ML VIAL ONE (13:51)
[2016-05-01] MEDS ORDERED: CLINDAMYCIN 900 MG PREMIX BAG IVPB ONE (13:52)
[2016-05-01] MEDS ORDERED: NEOSTIGMINE METHYLSULFATE 0.5 MG/ML - 10 ML MDV ONE (14:38)
[2016-05-01] MEDS ORDERED: GLYCOPYRROLATE 0.2 MG/1 ML VIAL ONE (14:38)
[2016-05-01] MEDS ORDERED: BUPIVACAINE HCL/PF 0.5% (5MG/ML) 10 ML VIAL IJ ONE ×2 (14:41)
[2016-05-01] MEDS ORDERED: HYDROmorphone HCL CARPU-JECT 2 MG/1 ML DISP.SYRIN IVPUSH PRN ×2 (14:45→15:26)
--- NOTE | 2016-05-01 14:55 | OP ---
Operative Note - Note: Operative Date: 05/01/16 Pre-Operative Diagnosis: acute cholecystitis/cholelithiasis Operation: laparoscopic cholelcystectomy Findings: acute cholecystitis/cholelithiasis/allan-hepatic adhesions Post-Operative Diagnosis: Same as Pre-op Surgeon: Shailesh Hernandes Control Room Supervisor: Lor Wilkinson Anesthesia: General Specimens Removed: gallbladder and contents Estimated Blood Loss (mls): 30
[2016-05-01] MEDS ORDERED: oxyCODONE HCL 5 MG TABLET PO PRN ×2 (15:14→15:16)
[2016-05-01] MEDS ORDERED: HYDROmorphone HCL CARPU-JECT 2 MG/1 ML DISP.SYRIN ONE (15:20)
[2016-05-01] MEDS ORDERED: HYDROmorphone HCL CARPU-JECT 2 MG/1 ML DISP.SYRIN IVPUSH ONE ×2 (15:20→16:00)
--- NOTE | 2016-05-01 15:23 | SURG ---
Surgery Operater Note Operater: Lor Wilkinson PA-C Date of Service: 05/01/16 Diagnosis: cholelithiasis, acute cholecystitis Procedure: laparscopic choleycystectomy I was present for the entirety of the operative procedure. For further detail, please refer to operative report. Visit type - Case Type Case Type: ED Admission - Emergency Emergency Visit: Yes ED Registration Date: 04/27/16 Care time: The patient presented to the Emergency Department on the above date and was hospitalized for further evaluation of their emergent condition. - New patient This patient is new to me today: Yes Date on this admission: 05/01/16 - Critical Care Critical Care patient: No
[2016-05-01] MEDS ORDERED: diphenhydrAMINE HCL 25 MG CAPSULE (FP) PO PRN (15:26)
[2016-05-01] MEDS ORDERED: chlordiazePOXIDE HCL 25 MG CAPSULE PO PRN (15:26)
[2016-05-01] MEDS ORDERED: HYDROmorphone HCL CARPU-JECT 1 MG/1 ML DISP.SYRIN IVPB PRN (15:26)
[2016-05-01] MEDS ORDERED: ONDANSETRON 4 MG/2 ML VIAL IVPB PRN (15:26)
--- NOTE | 2016-05-01 18:36 | PN ---
Physical Exam: SUBJECTIVE: Patient seen and examined after surgery. No acute issues, says her eye still itches. Tolerated clears well. OBJECTIVE: Vital Signs Period Temp Pulse Resp BP Sys/Ricardo Pulse Ox Last 24 Hr 97.5 F-98.2 F 60-90 16-18 115-162/60-98 95-98 PE Neuro: alert, awake, cn 2-12 intact Pulm: CTAB CV: s1 s2 rrr no mrg Abd: abd incision x4 CDI with, soft, distended Ext: warm, no LE edema Laboratory Results - last 24 hr 04/30/16 04/30/16 05/01/16 06:25 20:56 05:53 INR POC Glucometer 190 112 Hepatitis A Ab Total Negative Hep Bs Antigen Negative Hep Bs Antibody Non reactive Hep B Core Total Ab Negative Hepatitis C Antibody <0.1 Blood Type Antibody Screen 05/01/16 05/01/16 05/01/16 11:24 12:30 12:30 INR 1.05 POC Glucometer 124 Hepatitis A Ab Total Hep Bs Antigen Hep Bs Antibody Hep B Core Total Ab Hepatitis C Antibody Blood Type O NEGATIVE Antibody Screen Negative Active Medications Generic Name Dose Route Start Last Admin Trade Name Freq PRN Reason Stop Dose Admin Diphenhydramine HCl 25 mg 05/01/16 15:26 Benadryl - PO Q6H PRN FOR ITCHING Heparin Sodium (Porcine) 5,000 unit 05/01/16 22:00 Heparin - SQ TID JESSIE Hydromorphone HCl 0.5 mg 05/01/16 15:26 Dilaudid Injection - IVPB Q4H PRN PAIN Hydromorphone HCl 2 mg 05/01/16 15:26 Dilaudid Injection - IVPUSH 05/04/16 14:46 [id number] PRN PAIN Pantoprazole Sodium 100 mls @ 200 mls/hr 05/02/16 10:00 Protonix 40mg Ivpb (Pre-Docked) IVPB DAILY [facility] Insulin Aspart 1 vial 05/01/16 16:30 Novolog Vial Sliding Scale - SQ ACHS [facility] Protocol Levothyroxine Sodium 50 mcg 05/02/16 07:00 Synthroid - PO ACBK [facility] Ondansetron HCl 4 mg 05/01/16 15:26 Zofran Injection IVPB Q4H PRN NAUSEA AND/OR VOMITING Oxycodone HCl 5 mg 05/01/16 15:14 Roxicodone - PO Q4H PRN PAIN Oxycodone HCl 10 mg 05/01/16 15:16 Roxicodone - PO Q4H PRN PAIN Imaging: - MRCP shows cholelithiasis, suggestive of acute cholecystitis, no evidence of choledocholiasis Assessment: 55 year old female with PMHx: DM, hypothyroid, GERD, PUD admitted for cholelithiasis and pancreatitis. Plan: 1. Pancreatitis secondary to cholelithiasis, possibly acute cholecystitis - s/p Lap cholecystectomy today - HIDA negative - Clear diet - D/w surgery 2. Acute neurotic Angioedema - Resolved 3. ETOH withdrawal - PT refusing librium detox 4. Elevated LFTS - Resolved 5. DM II - ISS, BGM ACHS - Discontinue januvia on discharge 6. DVT PPX - Heparin 5000u TID 7. FEN - Clears, full liquid in AM Visit type - Emergency Visit Emergency Visit: Yes ED Registration Date: 04/27/16 Care time: The patient presented to the Emergency Department on the above date and was hospitalized for further evaluation of their emergent condition. - New Patient This patient is new to me today: No - Critical Care Critical Care patient: No
[2016-05-01] MEDS ORDERED: INSULIN (NOVOLOG) ASPART 100 UNITS/ML 10ML VIAL ONE (21:37)
[2016-05-02] MEDS: HEPARIN NA (PORCINE) 5,000 UNITS/ML 1ML VIAL SQ SCH (06:27)
[2016-05-02] MEDS ORDERED: LEVOTHYROXINE NA 50 MCG TABLET (FP) PO SCH (07:00)
[2016-05-02] MEDS: INSULIN SLIDING SCALE (NOVOLOG) 1 VIAL SQ SCH (07:59)
[2016-05-02] MEDS: chlordiazePOXIDE HCL 25 MG CAPSULE PO SCH (08:01)
--- NOTE | 2016-05-02 08:30 | PN ---
Progress Note (short form) - Note Progress Note: ANESTHESIA POD#1 S/P LAP cholecystectomy under GA No C/O pain,no N/V,some distention in her abdomen, VSS No complications to anesthesia seen. Tory Carballo.
[2016-05-02 09:35] VITALS: BP 128/67; PULSE 78; TEMP 98
[2016-05-02] MEDS ORDERED: PANTOPRAZOLE SODIUM 100 ML IVPB SCH (10:00)
--- NOTE | 2016-05-02 10:21 | OP ---
DATE OF OPERATION: 05/01/2016 PREOPERATIVE DIAGNOSES: Acute cholecystitis, cholelithiasis. POSTOPERATIVE DIAGNOSES: Acute cholecystitis, cholelithiasis, and perihepatic adhesions. PROCEDURE: Laparoscopic cholecystectomy. SURGEON: Shailesh Hernandes MD TRAY DRIER: Lor Wilkinson PA-C ANESTHESIA: General. OPERATIVE FINDINGS: There was mild acute cholecystitis, cholelithiasis, and perihepatic adhesions, possibly consistent with previous pelvic inflammatory disease. The rest of the findings are unremarkable. DESCRIPTION OF PROCEDURE: The patient was placed on the operating table in the supine position, and after the induction of general anesthesia, the patient's abdomen was prepped with ChloraPrep and draped in sterile fashion. A timeout was taken, and pneumoperitoneum established above the umbilicus using a Veress needle. Once 15 mmHg of intraabdominal pressure was obtained, a 5-mm port was placed and a laparoscopy carried out, and the previously noted findings were observed. The gallbladder was placed on cephalad and lateral traction, and dissection was begun in the triangle of Calot, where the cystic duct was identified, coursing from the gallbladder distally towards the common duct. Additionally, the cystic artery was identified using blunt dissection. Both structures were dissected proximally and distally for length, and critical view of safety was taken. The duct was divided with large hemoclips proximally and distally. The duct was divided with EndoShears after being clipped twice distally and twice proximally with large hemoclips. The artery was similarly clipped and divided. The gallbladder was then removed from the liver bed in a retrograde fashion using electrocautery. Prior to removal of the gallbladder from the edge of the liver, hemostasis was checked for and noted to be good. The gallbladder was then removed from the edge of the liver, placed in an Endo Catch, and brought out through the subxiphoid port. Pneumoperitoneum was re-established and hemostasis verified again. Next, all ports were removed under laparoscopic vision without evidence of bleeding from the port sites. The pneumoperitoneum was evacuated. The port sites were infiltrated with 0.50% Marcaine, and the port site incisions were closed using 4-0 Biosyn in a subcuticular fashion. Steri-Strips and Band-Aid dressings were placed, and the patient aroused from general anesthesia and transferred to the postanesthesia care unit in stable condition, awake and alert. ESTIMATED BLOOD LOSS: 30 mL. REPLACEMENTS: Crystalloid. DRAINS: None. SPECIMENS: Gallbladder and contents to Pathology. I, Shailesh Hernandes, was physically present in the operating room from the time the patient was placed on the operating table until she was transferred to the postanesthesia care unit in my accompaniment. MD CHACE H[facility]/[id number]
--- NOTE | 2016-05-02 10:25 | DS ---
Physical Exam: SUBJECTIVE: Patient seen and examined. She is ambulating, no flatulence as of yet, tolerating diet, pain tolerable. OBJECTIVE: Vital Signs Period Temp Pulse Resp BP Sys/Ricardo Pulse Ox Last 24 Hr 97.5 F-99.1 F 60-83 16-20 115-196/60-88 95-98 PE Neuro: alert, awake, cn 2-12 intact Pulm: CTAB CV: s1 s2 rrr no mrg Abd: abd incision x4 CDI with, soft, distended Ext: warm, no LE edema Laboratory Results - last 24 hr 05/01/16 05/01/16 05/01/16 11:24 12:30 12:30 INR 1.05 POC Glucometer 124 Blood Type O NEGATIVE Antibody Screen Negative 05/01/16 05/01/16 05/02/16 16:07 21:18 06:23 INR POC Glucometer 158 238 97 Blood Type Antibody Screen HOSPITAL COURSE: Date of Admission:04/27/16 Date of Discharge: 05/02/16 Minutes to complete discharge: 35 Discharge Summary Reason For Visit: DIABETES MELLITUS,ALCOHOL-INDUCED ACUTE PANCREATIT Current Active Problems Acute alcoholic pancreatitis (Acute) Dehydration (Acute) Diabetes (Acute) Gallstones and inflammation of gallbladder without obstruction (Acute) Pancreatitis (Acute) Hospital Course: Initial Hospital Course: Briefly, this 55 year old female with past medical history of DM, hypothyroid, GERD, PUD presented to the ED with a 4 month history of epigastric pain. The pain radiated to her RUQ and LUQ which worsened over 2 days. She underwent a workup at [facility] earlier this week which included upper and lower endoscopy, CT scan and sonogram. Her sono revealed fatty liver and 2 stones as per the ED note. Her endoscopy was significant for gastric ulcers for which she was started on omeprazole. She has had decreased appetite but denied nausea, vomiting or diarrhea. Last BM was during prep for endoscopy. She states that she is a daily alcohol drinker. She did not eat anything today but did have some vodka and juice. Imaging: - MRCP shows cholelithiasis, suggestive of acute cholecystitis, no evidence of choledocholiasis Subsequent Hospital Course/Progress Note/Discharge Summary by a/p: Assessment: 55 year old female with PMHx: DM, hypothyroid, GERD, PUD admitted for cholelithiasis and pancreatitis. Plan: 1. Pancreatitis secondary to cholelithiasis, possible acute cholecystitis - No evidence of leukocytosis and fever, no abx initiated - s/p Lap cholecystectomy 05/01 - HIDA negative - Office surgery follow up next 2. Acute neurotic Angioedema - Resolved, s/p steroids and Benadryl 3. ETOH withdrawal - Counseled on alcohol cessation - PT refusing librium detox 4. Elevated LFTs - Resolved 5. DM II - Home with Amaryl - Adverse rxn to metformin Dispo: - Home with surgery follow up and pcp in 1 week - Pt aware and agrees to above plan Condition: Stable - Instructions Diet, Activity, Other Instructions: Please return to the ED for any new, persistent, or worsening symptoms. Follow up with your PCP in 1-2 weeks. Take home medications as directed on discharge list Dr Hernandes Discharge Instructions Dear MARK ROSA, Post Operative Instructions Physical activity Resume your normal everyday activity as tolerated no heavy lifting or exercise until seen by your surgeon. You may walk unlimited genet of and climb stairs. You may resume driving the car when you feel safe and comfortable behind the wheel. Wound care If you have a bandage, leave it on, and keep dry for 48-72 hours. After that time discard the outer bandage. If there are tapes on the skin under the outer bandage, leave them in place. They will peel off in the next 7 to 10 days. Do Not Peel them off. You may shower the day after surgery. If there are tapes present on the skin, you may shower over them. Diet Eat a low fat healthy diet, high-fiber foods. Drink 6 to 8 glasses of liquid each day. This will assist in keeping your bowels are regular. Pain management You may take Tylenol or acetaminophen. Any pain prescription medication ordered should be taken as prescribed for moderate to severe pain. Call Dr. Hernandes for any of the following: Severe pain not relieved by medication Fever of 101 or higher Excessive bleeding or drainage on dressing Call the office at [phone] for an appointment next Referrals: Shailesh Hernandes MD [Staff Physician] - 1 Week (Next for appt [phone]) Geovanna Lee MD [Primary Care Provider] - Disposition: HOME - Home Medications Comprehensive Discharge Medication List: Ambulatory Orders Levothyroxine [Synthroid -] 50 mcg PO DAILY 03/25/12 Omeprazole 40 mg PO DAILY 04/27/16 Glimepiride [Amaryl] 1 mg GT DAILY #30 tablet 05/02/16 Oxycodone HCl/Acetaminophen [Percocet 5-325 mg Tablet] 1 tab PO Q6H #20 tablet MDD 4 05/02/16 This patient is new to me today: No Emergency Visit: Yes ED Registration Date: 04/27/16 Care time: The patient presented to the Emergency Department on the above date and was hospitalized for further evaluation of their emergent condition. Critical Care patient: No - Discharge Referral Referred to [facility] Med P.C.: No
--- NOTE | 2016-05-03 13:25 | PATH ---
Surgical Pathology Report Patient Name: MARK ROSA [facility]. Rec. #: [id number] /Age/Gender: 1960 (Age: 55) / F Account: [id number] Location: [address] [place] [address]/[facility] Taken: 05/01/2016 Received: 05/02/2016 Reported: 05/03/2016 Physicians: Shailesh Hernandes MD Specimen(s) Received GALLBLADDER Clinical History Cholelithiasis Final Diagnosis GALLBLADDER, CHOLECYSTECTOMY: CHRONIC CHOLECYSTITIS, CHOLESTEROLOSIS, AND CHOLELITHIASIS. Electronically Signed Johan Moser M.D. Gross Description Received in formalin, labeled "gallbladder," is a 9.3 x 3.2 x 3.0 cm. gallbladder with a 0.2 cm. in length portion of cystic duct attached. The outer surface is olivas green and varies from smooth to shaggy. The lumen contains brown, tenacious bile as well as 2 brown, irregular choleliths averaging 1.6 cm in greatest dimension. The mucosa is dark green-brown and velvety. The wall of the gallbladder averages 0.1 cm. in thickness. [employer] sections are submitted in one cassette. 05/02/201605/02/2016
== END 2016-05-02 10:42 | disposition home or self-care (01) | DRG 417 ==
LOC: JER 18:49 → JERBED 21:54 → J6S 23:52
PROVIDERS: ADMIT Internal Medicine; ATTEND Nurse Practitioner Acute Care
PROC: 0FT44ZZ Resection of Gallbladder, Percutaneous Endoscopic Approach (ICD-10-PCS; principal; 2016-05-01 12:00)
DX: K80.00 Calculus of gallbladder with acute cholecystitis without obstruction (principal); K85.20 Alcohol induced acute pancreatitis without necrosis or infection; F10.239 Alcohol dependence with withdrawal, unspecified; E11.9 Type 2 diabetes mellitus without complications; E03.9 Hypothyroidism, unspecified; K21.9 Gastro-esophageal reflux disease without esophagitis; T78.3XXA Angioneurotic edema, initial encounter; Z72.0 Tobacco use; E86.0 Dehydration
CPT/HCPCS: 36415; 71020-TC; 74176-TC; 74181-TC; 76705-TC; 78226-TC; 80053; 81003; 82150; 83690; 83735; 84100; 85025; 85610; 86704; 86706; 86708; 86850; 86900; 86901; 87340; 88304-TC; 94010; 94760; 99283-25; A9537; J1644

== ENCOUNTER 2016-06-12 13:56 | Emergency (ER) | payer OTHER ==
[2016-06-12 14:08] VITALS: TEMP 98.3; BMI 31.3
--- NOTE | 2016-06-12 15:17 | PDOC ---
History of Present Illness - General Chief Complaint: Chest Pain Stated Complaint: CHEST PAIN Time Seen by Provider: 06/12/16 14:44 Past History - Past Medical History Allergies/Adverse Reactions: Allergies Allergy/AdvReac Type Severity Reaction Status Date / Time aspirin Allergy Verified 06/12/16 14:08 Penicillins Allergy Verified 06/12/16 14:08 sulfur [From Sulfur-8] Allergy Verified 06/12/16 14:08 sulfur dioxide Allergy Verified 06/12/16 14:08 CHEESE Allergy Uncoded 06/12/16 14:08 Home Medications: Ambulatory Orders Levothyroxine [Synthroid -] 50 mcg PO DAILY 03/25/12 Omeprazole 40 mg PO DAILY 04/27/16 Metformin HCl 500 mg PO DAILY 06/12/16 Anemia: No Diabetes: Yes HTN: Yes Thyroid Disease: Yes - Surgical History Cholecystectomy: Yes Neurologic Surgery: Yes (L5 FUSION) Orthopedic Surgery: Yes (LT TIB FIBIA FX SX) - Psycho/Social/Smoking Cessation Hx Anxiety: No Suicidal Ideation: No Smoking Status: Yes Smoking History: Current some day smoker Years of Tobacco Use: 20 Have you smoked in the past 12 months: No Number of Cigarettes Smoked Daily: 3 Information on smoking cessation initiated: No Hx Alcohol Use: Yes (OCCASIONALLY) Drug/Substance Use Hx: No Substance Use Type: None Hx Substance Use Treatment: No *Physical Exam - Vital Signs Last Vital Signs Temp Pulse Resp BP Pulse Ox 98.3 F 80 17 154/76 98 06/12/16 14:04 06/12/16 20:00 06/12/16 20:00 06/12/16 20:00 06/12/16 20:00 ED Treatment Course - LABORATORY CBC & Chemistry Diagram: 06/12/16 16:50 06/12/16 16:50 - ADDITIONAL ORDERS Additional order review: Laboratory Results 06/12/16 06/12/16 17:46 16:50 Sodium 140 Potassium 4.1 Chloride 102 Carbon Dioxide 26 Anion Gap 12 BUN 7 D Creatinine 0.7 Creat Clearance w eGFR > 60 Random Glucose 106 Calcium 9.5 Total Bilirubin 0.8 AST 26 ALT 38 D Alkaline Phosphatase 67 D Creatine Kinase 50 Troponin I < 0.02 Total Protein 7.8 Albumin 4.3 D Lipase 136 Urine Color Ltyellow Urine Appearance Clear Urine pH 6.0 Ur Specific [place] 1.008 Urine Protein Negative Urine Glucose (UA) Negative Urine Ketones Negative Urine Blood Negative Urine Nitrite Negative Urine Bilirubin Negative Urine Urobilinogen Negative Ur Leukocyte Esterase Negative 06/12/16 16:50 RBC 4.86 MCV 97.5 H MCHC 32.9 RDW 14.3 MPV 9.5 Neutrophils % 59.3 Lymphocytes % 31.2 Monocytes % 6.7 Eosinophils % 1.9 Basophils % 0.9 - Medications Given in the ED: ED Medications Discontinued Medications Generic Name Dose Route Start Last Admin Trade Name Ama PRN Reason Stop Dose Admin Acetaminophen 650 mg 06/12/16 20:01 06/12/16 20:12 Tylenol - PO 06/12/16 20:02 650 mg ONCE ONE Administration Famotidine/Sodium Chloride 50 mls @ 100 mls/hr 06/12/16 17:57 06/12/16 18:46 Pepcid 20 Mg Premixed Ivpb - IVPB 06/12/16 18:26 100 mls/hr ONCE ONE Administration Ketorolac Tromethamine 30 mg 06/12/16 17:57 06/12/16 18:46 Toradol Injection - IVPUSH 06/12/16 17:58 Not Given ONCE ONE Medical Decision Making - Medical Decision Making 06/12/16 20:42 The patient was seen and evaluated in conjunction with MG Mcdaniel under my direct supervision, ancillary studies were reviewed. I agree with the plan as outlined by MG Mcdaniel . *DC/Admit/Observation/Transfer Diagnosis at time of Disposition: Epigastric abdominal pain - Discharge Dispostion Condition at time of disposition: Improved - Referrals Referrals: Adelso Mason MD [Staff Physician] - Geovanna Lee MD [Primary Care Provider] -
--- NOTE | 2016-06-12 16:24 | PDOC ---
History of Present Illness - General History Source: Patient Exam Limitations: No Limitations - History of Present Illness Initial Comments: CHIEF COMPLAINT: 55 y/o afebrile female with PMH HTN, hypothyroidism c/o overall body pain for a "few months". HISTORY OF PRESENT ILLNESS: The patient states she's had overall body pain, worse in her abdomen for a few months. The patient states she was seen here in April for these symptoms and had pancreatitis and had her gallbladder removed. She states she continues to have similar pain, mostly in her abdomen but everywhere else as well, including her legs and chest. She denies f/c, n/v/ d, cough, OCHOA, neck pain, SOB, back pain, hematuria, dysuria. Vital signs on arrival are notable for pulse of 99. REVIEW OF SYSTEMS: GENERAL/CONSTITUTIONAL: No fever/chills. No weakness. No weight change. HEAD, EYES, EARS, NOSE AND THROAT: No change in vision. No ear pain or discharge. No sore throat. CARDIOVASCULAR: +chest pain. No shortness of breath. RESPIRATORY: No cough, wheezing, or hemoptysis. GASTROINTESTINAL: +abd pain. No nausea, vomiting, diarrhea. GENITOURINARY: No dysuria, frequency, or change in urination. MUSCULOSKELETAL: +leg pain. No neck or back pain. SKIN: No rash or easy bruising. NEUROLOGIC: No headache, vertigo, loss of consciousness, or loss of sensation. PHYSICAL EXAM: GENERAL: The patient is awake, alert, and fully oriented, in no acute distress. She is well appearing and ambulatory. She is in NAD or obvious discomfort. HEAD: Normal with no signs of trauma. ENT: Pupils equal, round and reactive to light, extraocular movements intact, sclera anicteric, conjunctiva clear. Neck supple. LUNGS: Clear to auscultation bilaterally. Normal excursion. No respiratory distress or use of accessory muscles. CV: RRR, S1/S2, no MRG. Cap refill < 2 sec. ABDOMEN: Soft, non-distended, TTP of epigastric and RUQ with negative Askew's sign. No rebound, guarding or rigidity. EXTREMITIES: Normal range of motion, no edema. NEUROLOGICAL: Normal speech, normal gait. CN II-XII grossly intact. PSYCH: Normal mood, normal affect. SKIN: Warm, dry, normal turgor, no rashes or lesions noted. <Wohltman,Roseann - Last Filed: 06/12/16 18:48> <Alessandra Mosquera - Last Filed: 06/12/16 21:05> <Aidan Anderson - Last Filed: 06/14/16 08:28> - General Chief Complaint: Chest Pain Stated Complaint: CHEST PAIN Time Seen by Provider: 06/12/16 14:44 Past History - Past Medical History Anemia: No Diabetes: Yes HTN: Yes Thyroid Disease: Yes - Surgical History Cholecystectomy: Yes Neurologic Surgery: Yes (L5 FUSION) Orthopedic Surgery: Yes (LT TIB FIBIA FX SX) - Psycho/Social/Smoking Cessation Hx Anxiety: No Suicidal Ideation: No Smoking Status: Yes Smoking History: Current some day smoker Years of Tobacco Use: 20 Have you smoked in the past 12 months: No Number of Cigarettes Smoked Daily: 3 Information on smoking cessation initiated: No Hx Alcohol Use: Yes (OCCASIONALLY) Drug/Substance Use Hx: No Substance Use Type: None Hx Substance Use Treatment: No <Roseann Mcdaniel - Last Filed: 06/12/16 18:48> <Alessandra Mosquera - Last Filed: 06/12/16 21:05> <Aidan Anderson - Last Filed: 06/14/16 08:28> - Past Medical History Allergies/Adverse Reactions: Allergies Allergy/AdvReac Type Severity Reaction Status Date / Time aspirin Allergy Verified 06/12/16 14:08 Penicillins Allergy Verified 06/12/16 14:08 sulfur [From Sulfur-8] Allergy Verified 06/12/16 14:08 sulfur dioxide Allergy Verified 06/12/16 14:08 CHEESE Allergy Uncoded 06/12/16 14:08 Home Medications: Ambulatory Orders Levothyroxine [Synthroid -] 50 mcg PO DAILY 03/25/12 Omeprazole 40 mg PO DAILY 04/27/16 Gabapentin 300 mg PO BID #20 capsule 06/12/16 Metformin HCl 500 mg PO DAILY 06/12/16 *Physical Exam - Vital Signs Last Vital Signs Temp Pulse Resp BP Pulse Ox 98.3 F 99 H 20 132/77 95 06/12/16 14:04 06/12/16 14:04 06/12/16 14:04 06/12/16 14:04 06/12/16 14:04 <Roseann Mcdaniel - Last Filed: 06/12/16 18:48> - Vital Signs Last Vital Signs Temp Pulse Resp BP Pulse Ox 98.3 F 80 17 154/76 98 06/12/16 14:04 06/12/16 20:00 06/12/16 20:00 06/12/16 20:00 06/12/16 20:00 <Alessandra Mosquera - Last Filed: 06/12/16 21:05> - Vital Signs Last Vital Signs Temp Pulse Resp BP Pulse Ox 98.3 F 80 17 154/76 98 06/12/16 14:04 06/12/16 20:00 06/12/16 20:00 06/12/16 20:00 06/12/16 20:00 <Aidan Anderson - Last Filed: 06/14/16 08:28> Heart Score/ECG Review - ECG Intrepretation Comment:: Twelve-lead EKG was performed and reviewed by Dr. Anderson. There is normal sinus rhythm with a normal rate. The axis is normal. The intervals are normal. There are no ST or T wave abnormalities. Impression: Normal twelve-lead EKG <Roseann Mcdaniel - Last Filed: 06/12/16 18:48> ED Treatment Course - LABORATORY CBC & Chemistry Diagram: 06/12/16 16:50 06/12/16 16:50 <Roseann Mcdaniel - Last Filed: 06/12/16 18:48> - LABORATORY CBC & Chemistry Diagram: 06/12/16 16:50 06/12/16 16:50 - ADDITIONAL ORDERS Additional order review: Laboratory Results 06/12/16 06/12/16 17:46 16:50 Sodium 140 Potassium 4.1 Chloride 102 Carbon Dioxide 26 Anion Gap 12 BUN 7 D Creatinine 0.7 Creat Clearance w eGFR > 60 Random Glucose 106 Calcium 9.5 Total Bilirubin 0.8 AST 26 ALT 38 D Alkaline Phosphatase 67 D Creatine Kinase 50 Troponin I < 0.02 Total Protein 7.8 Albumin 4.3 D Lipase 136 Urine Color Ltyellow Urine Appearance Clear Urine pH 6.0 Ur Specific [place] 1.008 Urine Protein Negative Urine Glucose (UA) Negative Urine Ketones Negative Urine Blood Negative Urine Nitrite Negative Urine Bilirubin Negative Urine Urobilinogen Negative Ur Leukocyte Esterase Negative 06/12/16 16:50 RBC 4.86 MCV 97.5 H MCHC 32.9 RDW 14.3 MPV 9.5 Neutrophils % 59.3 Lymphocytes % 31.2 Monocytes % 6.7 Eosinophils % 1.9 Basophils % 0.9 - Medications Given in the ED: ED Medications Discontinued Medications Generic Name Dose Route Start Last Admin Trade Name Ama PRN Reason Stop Dose Admin Acetaminophen 650 mg 06/12/16 20:01 06/12/16 20:12 Tylenol - PO 06/12/16 20:02 650 mg ONCE ONE Administration Famotidine/Sodium Chloride 50 mls @ 100 mls/hr 06/12/16 17:57 06/12/16 18:46 Pepcid 20 Mg Premixed Ivpb - IVPB 06/12/16 18:26 100 mls/hr ONCE ONE Administration Ketorolac Tromethamine 30 mg 06/12/16 17:57 06/12/16 18:46 Toradol Injection - IVPUSH 06/12/16 17:58 Not Given ONCE ONE <Alessandra Mosquera - Last Filed: 06/12/16 21:05> - LABORATORY CBC & Chemistry Diagram: 06/12/16 16:50 06/12/16 16:50 - ADDITIONAL ORDERS Additional order review: 06/12/16 16:50 RBC 4.86 MCV 97.5 H MCHC 32.9 RDW 14.3 MPV 9.5 Neutrophils % 59.3 Lymphocytes % 31.2 Monocytes % 6.7 Eosinophils % 1.9 Basophils % 0.9 - Medications Given in the ED: ED Medications Discontinued Medications Generic Name Dose Route Start Last Admin Trade Name Ama PRN Reason Stop Dose Admin Acetaminophen 650 mg 06/12/16 20:01 06/12/16 20:12 Tylenol - PO 06/12/16 20:02 650 mg ONCE ONE Administration Famotidine/Sodium Chloride 50 mls @ 100 mls/hr 06/12/16 17:57 06/12/16 18:46 Pepcid 20 Mg Premixed Ivpb - IVPB 06/12/16 18:26 100 mls/hr ONCE ONE Administration Ketorolac Tromethamine 30 mg 06/12/16 17:57 06/12/16 18:46 Toradol Injection - IVPUSH 06/12/16 17:58 Not Given ONCE ONE <Aidan Anderson - Last Filed: 06/14/16 08:28> Medical Decision Making - Medical Decision Making A/P: 55 y/o female with epigastric and RUQ pain on examination with reported overall body pain, including chest pain, for the past "few months". Plan is as follows: 1. EKG 2. Labs 3. UA EKG normal Labs normal Ordered IV toradol and pepcid; cancelled Toradol as the patient tells me she is allergic to aspirin. The patient was given all of her results. Suspect her pain may be secondary to nerve pain. Will reassess her pain after pepcid. I am signing this patient out to my colleague: EFRA Mosquera In brief, this patient is being seen in the ED for a chief complaint of: overall body pain x a few months. I have completed the initial assessment interview note and have ordered: labs, EKG, UA I have reviewed the following results: all Pending results are: none Plan for disposition is as follows: Most likely discharge <Roseann Mcdaniel - Last Filed: 06/12/16 18:48> - Medical Decision Making 06/12/16 21:05 Patient standing in huang eating potato chips because she couldnt stand alarm from monitor ringing. Patient hinted at wanting pain medications. She was instructed to take Tylenol. Patient reports allergies to Ibuprofen and ASA products. Will start patient on Gabapentin. Patient demonstrated understanding to follow up with Neuro. <Alessandra Mosquera - Last Filed: 06/12/16 21:05> - Medical Decision Making 06/14/16 08:28 The patient was seen and evaluated in conjunction with MG Mcdaniel under my direct supervision, ancillary studies were reviewed. I agree with the plan as outlined by MG Mcdaniel . <Aidan Anderson - Last Filed: 06/14/16 08:28> *DC/Admit/Observation/Transfer <Roseann Mcdaniel - Last Filed: 06/12/16 18:48> - Discharge Dispostion Admit: No <Alessandra Mosquera - Last Filed: 06/12/16 21:05> <Aidan Anderson - Last Filed: 06/14/16 08:28> Diagnosis at time of Disposition: Epigastric abdominal pain - Discharge Dispostion Disposition: HOME Condition at time of disposition: Improved - Prescriptions Prescriptions: Gabapentin 300 mg PO BID #20 capsule - Referrals Referrals: Adelso Mason MD [Staff Physician] - Geovanna Lee MD [Primary Care Provider] - - Patient Instructions Printed Discharge Instructions: DI for Abdominal Pain-Adult Additional Instructions: FOLLOW UP WITH NEUROLOGY DISCUSSED. CALL TO SCHEDULE APPOINTMENT. START GABAPENTIN AND FOLLOW DIRECTIONS. IF ANY CONCERNS STOP AND FOLLOW UP WITH NEUROLOGY. RETURN IF ANY CONCERNS FOR FURTHER EVALUATION. Print Language: CHINESE - Post Discharge Activity Work/School Note: Back to Work
[2016-06-12 16:59] LABS: BASOPHIL 0.9 % (0-2.0); EOSINOPHIL 1.9 % (0-4.5); MCH 32.1 pg (25.7-33.7); MCHC 32.9 g/dl (32.0-36.0); MEAN CELL VOLUME 97.5 fl (80-96); MEAN PLT VOLUME 9.5 fl (7.5-11.1); NEUTROPHILS 59.3 % (42.8-82.8); PLATELET COUNT 266 K/MM3 (134-434); RDW 14.3 % (11.6-15.6); WHITE BLOOD COUNT 5.8 K/mm3 (4.0-10.0)
[2016-06-12 17:23] LABS: ALBUMIN 4.3 g/dl (3.4-5.0); ANION GAP 12 (8-16); BILIRUBIN,TOTAL 0.8 mg/dL (0.2-1.0); CALCIUM 9.5 mg/dL (8.5-10.1); CO2 26 mmol/L (21-32); CREATININE 0.7 mg/dL (0.55-1.02); GLUCOSE,RANDOM 106 mg/dL (74-106); SGOT/AST 26 U/L (15-37); SGPT/ALT 38 U/L (12-78); TOT PROT 7.8 g/dl (6.4-8.2)
[2016-06-12 17:26] LABS: ALK PHOS 67 U/L (45-117); TROPONIN I < 0.02 ng/ml (0.00-0.05)
[2016-06-12] MEDS ORDERED: KETOROLAC TROMETHAMINE 30 MG/1 ML VIAL IVPUSH ONE (17:57)
[2016-06-12] MEDS ORDERED: FAMOTIDINE 20 MG/50 ML IVPB 50 ML IVPB ONE ×2 (17:57→18:28)
[2016-06-12 18:11] LABS: URINE APPEARANCE CLEAR; URINE BILIRUBIN NEGATIVE (NEGATIVE); URINE BLOOD NEGATIVE (NEGATIVE); URINE COLOR LTYELLOW; URINE GLUCOSE (UA) NEGATIVE (NEGATIVE); URINE KETONE NEGATIVE (NEGATIVE); URINE LEUK ESTERASE NEGATIVE (NEGATIVE); URINE NITRITE NEGATIVE (NEGATIVE); URINE PROTEIN NEGATIVE (NEGATIVE); URINE UROBILINOGEN NEGATIVE E.U./dl (0.2-1.0)
[2016-06-12] MEDS ORDERED: KETOROLAC TROMETHAMINE 30 MG/1 ML VIAL ONE (18:29)
[2016-06-12] MEDS ORDERED: ACETAMINOPHEN 325 MG TABLET (FP) ONE (19:55)
[2016-06-12] MEDS ORDERED: ACETAMINOPHEN 325 MG TABLET (FP) PO ONE (20:01)
[2016-06-12 20:28] VITALS: BP 154/76; PULSE 80
--- NOTE | 2016-06-13 14:13 | EKG ---
Test Reason : Blood Pressure : / mmHG Vent. Rate : 087 BPM Atrial Rate : 087 BPM P-R Int : 168 ms QRS Dur : 092 ms QT Int : 364 ms P-R-T Axes : 073 -46 063 degrees QTc Int : 438 ms NORMAL SINUS RHYTHM POSSIBLE LEFT ATRIAL ENLARGEMENT LEFT AXIS DEVIATION POSSIBLE ANTERIOR INFARCT , AGE UNDETERMINED ABNORMAL ECG WHEN COMPARED WITH ECG OF 28-DEC-2015 19:45, QRS AXIS SHIFTED LEFT Confirmed by FIGUEROA MORAN, ALEXI ([id number]) on 06/13/2016 2:13:16 PM Referred By: Confirmed By:ALEXI MARTI MD
== END 2016-06-13 00:04 | disposition home or self-care (01) ==
LOC: JER 13:56
PROC: 3E033GC Introduction of Other Therapeutic Substance into Peripheral Vein, Percutaneous Approach (ICD-10-PCS; principal; 2016-06-12)
DX: R10.13 Epigastric pain (principal); I10 Essential (primary) hypertension; E11.9 Type 2 diabetes mellitus without complications; Z79.84 Long term (current) use of oral hypoglycemic drugs; E03.9 Hypothyroidism, unspecified
CPT/HCPCS: 36415; 80053; 81003; 82550; 83690; 84484; 85025; 93005; 93010; 99285-25

== ENCOUNTER 2021-05-25 18:31 | Emergency (ER) | payer OTHER ==
[2021-05-25 18:53] VITALS: TEMP 97.4; BMI 20.7
[2021-05-25] MEDS ORDERED: ACETAMINOPHEN 325 MG TABLET (FP) PO ONE (20:10)
[2021-05-25] MEDS ORDERED: ACETAMINOPHEN 325 MG TABLET (FP) ONE (20:32)
[2021-05-25 21:11] LABS: EOS % 6.9 % (0-4.5); HEMATOCRIT 42.4 % (32.4-45.2); HEMOGLOBIN 13.9 GM/dL (10.7-15.3); LYMPH % 36.7 % (8-40); MCH 31.4 pg (25.7-33.7); MCHC 32.7 g/dl (32.0-36.0); MEAN PLT VOLUME 9.5 fl (7.5-11.1); MONO % 7.3 % (3.8-10.2); NEUT % 48.1 % (42.8-82.8); PLATELET COUNT 222 10^3/uL (134-434); RBC 4.41 M/mm3 (3.60-5.2); RDW 16.9 % (11.6-15.6); WHITE BLOOD COUNT 3.9 K/mm3 (4.0-10.0)
[2021-05-25] MEDS ORDERED: DIPHTH,PERTUSS(ACELL),TET 0.5 ML DISP.SYRIN IM ONE ×2 (21:21→21:35)
[2021-05-25 21:31] LABS: ALBUMIN 4.1 g/dl (3.4-5.0); CALCIUM 9.4 mg/dL (8.5-10.1)
[2021-05-25 21:32] LABS: BLOOD UREA NITROGEN 11.2 mg/dL (7-18); MAGNESIUM 2.2 mg/dL (1.8-2.4)
[2021-05-25 21:35] LABS: CREATININE 0.5 mg/dL (0.55-1.3)
[2021-05-25 21:36] LABS: BILIRUBIN,TOTAL 0.2 mg/dL (0.2-1); TOT PROT 7.2 g/dl (6.4-8.2)
[2021-05-25 21:43] VITALS: BP 137/86; PULSE 86
== END 2021-05-25 22:05 | disposition home or self-care (01) ==
LOC: JER 18:31
PROC: 3E0234Z Introduction of Serum, Toxoid and Vaccine into Muscle, Percutaneous Approach (ICD-10-PCS; principal; 2021-05-25)
DX: S01.01XA Laceration without foreign body of scalp, initial encounter (principal); W01.198A Fall on same level from slipping, tripping and stumbling with subsequent striking against other object, initial encounter
CPT/HCPCS: 36415; 70450-TC; 72125-TC; 80053; 83735; 85025; 90715; 99285-25

== ENCOUNTER 2021-06-06 13:51 | Emergency (ER) | payer OTHER ==
[2021-06-06 14:09] VITALS: BP 170/85; PULSE 69; TEMP 98; BMI 21.1
== END 2021-06-06 15:29 | disposition home or self-care (01) ==
LOC: JERFT 13:51
DX: Z48.02 Encounter for removal of sutures (principal)
CPT/HCPCS: 99281-25

== ENCOUNTER 2021-06-15 09:30 | Emergency (ER) | payer OTHER ==
[2021-06-15 09:42] VITALS: BMI 23.1
[2021-06-15] MEDS ORDERED: ACETAMINOPHEN 500 MG TABLET (FP) PO ONE (09:48)
[2021-06-15] MEDS ORDERED: ACETAMINOPHEN 325 MG TABLET (FP) ONE (10:00)
[2021-06-15 10:36] LABS: BASO % 2.2 % (0-2.0); EOS % 4.9 % (0-4.5); HEMATOCRIT 41.3 % (32.4-45.2); HEMOGLOBIN 13.5 GM/dL (10.7-15.3); LYMPH % 32.5 % (8-40); MCH 30.8 pg (25.7-33.7); MCHC 32.6 g/dl (32.0-36.0); MEAN CELL VOLUME 94.5 fl (80-96); MEAN PLT VOLUME 9.3 fl (7.5-11.1); MONO % 9.4 % (3.8-10.2); PLATELET COUNT 195 10^3/uL (134-434); RBC 4.37 M/mm3 (3.60-5.2); RDW 16.2 % (11.6-15.6); WHITE BLOOD COUNT 3.9 K/mm3 (4.0-10.0)
[2021-06-15 10:54] LABS: CALCIUM 10.2 mg/dL (8.5-10.1)
[2021-06-15 10:55] LABS: ALBUMIN 4.3 g/dl (3.4-5.0); BLOOD UREA NITROGEN 13.5 mg/dL (7-18); MAGNESIUM 2.2 mg/dL (1.8-2.4)
[2021-06-15 10:58] LABS: CREATININE 0.7 mg/dL (0.55-1.3); PHOSPHOROUS 3.7 mg/dL (2.5-4.9)
[2021-06-15 10:59] LABS: BILIRUBIN,TOTAL 0.6 mg/dL (0.2-1)
[2021-06-15 11:00] LABS: TOT PROT 7.7 g/dl (6.4-8.2)
[2021-06-15 11:08] LABS: URINE APPEARANCE CLEAR; URINE BILIRUBIN NEGATIVE (NEGATIVE); URINE COLOR YELLOW; URINE GLUCOSE (UA) NEGATIVE (NEGATIVE); URINE KETONE NEGATIVE (NEGATIVE); URINE LEUK ESTERASE NEGATIVE (NEGATIVE); URINE NITRITE NEGATIVE (NEGATIVE); URINE PROTEIN NEGATIVE (NEGATIVE); URINE UROBILINOGEN 0.2 mg/dL (0.2-1.0)
[2021-06-15 13:54] VITALS: BP 137/72; PULSE 76; TEMP 98.1
== END 2021-06-15 13:56 | disposition home or self-care (01) ==
LOC: JER 09:30
PROC: 0HQ1XZZ Repair Face Skin, External Approach (ICD-10-PCS; principal; 2021-06-15)
DX: S09.90XA Unspecified injury of head, initial encounter (principal); S01.01XA Laceration without foreign body of scalp, initial encounter; W01.0XXA Fall on same level from slipping, tripping and stumbling without subsequent striking against object, initial encounter; Y92.002 Bathroom of unspecified non-institutional (private) residence as the place of occurrence of the external cause
CPT/HCPCS: 36415; 70450-TC; 71045-TC-FY; 72125-TC; 80053; 81003; 83735; 84100; 84484; 85025; 87086; 87186; 93005; 93010; 99285-25; C9803-CS; U0003; U0005

== ENCOUNTER 2021-07-04 13:55 | Emergency (ER) | payer OTHER ==
[2021-07-04 13:58] VITALS: BP 150/71; PULSE 74; TEMP 98.3; BMI 23.5
== END 2021-07-04 14:18 | disposition home or self-care (01) ==
LOC: JERFT 13:55
DX: S01.01XA Laceration without foreign body of scalp, initial encounter (principal); Y99.9 Unspecified external cause status; Z48.02 Encounter for removal of sutures
CPT/HCPCS: 99281-25

== ENCOUNTER 2022-09-17 14:45 | Inpatient (IN) | payer OTHER ==
[2022-09-17] MEDS ORDERED: FOLIC ACID INJECTION - 1 MG, THIAMINE HCL 100 MG, MULTIVIT INJECTION ADULT 10 ML in SOD... IVPB ONE (16:52)
[2022-09-17] MEDS ORDERED: ACETAMINOPHEN 325 MG TABLET (FP) PO ONE (16:52)
[2022-09-17] MEDS ORDERED: chlordiazePOXIDE HCL 25 MG CAPSULE PO ONE (17:14)
[2022-09-17] MEDS ORDERED: chlordiazePOXIDE HCL 25 MG CAPSULE ONE (17:31)
[2022-09-17 17:32] LABS: EPI CELLS 15 /uL (0-25.1); HYALINE CASTS 0 /uL (0-3.1); PH,URINE 5.5 (5.0-8.0); URINE APPEARANCE CLEAR; URINE BACTERIA 1574 /uL (0-1359); URINE BILIRUBIN NEGATIVE (NEGATIVE); URINE COLOR YELLOW; URINE GLUCOSE (UA) NEGATIVE (NEGATIVE); URINE KETONE NEGATIVE (NEGATIVE); URINE LEUK ESTERASE TRACE (NEGATIVE); URINE NITRITE NEGATIVE (NEGATIVE); URINE PROTEIN NEGATIVE (NEGATIVE); URINE RBC 3 /uL (0-23.9); URINE UROBILINOGEN 0.2 mg/dL (0.2-1.0); URINE WBC 14 /uL (0-25.8)
[2022-09-17] MEDS ORDERED: NICOTINE 7 MG/24 HOURS TOPICAL PATCH TD ONE ×2 (17:37→17:47)
[2022-09-17 18:46] LABS: BASO % 1.3 % (0-2.0); EOS % 2.9 % (0-4.5); HEMATOCRIT 42.2 % (32.4-45.2); HEMOGLOBIN 13.5 GM/dL (10.7-15.3); LYMPH % 25.3 % (8-40); MCH 33.8 pg (25.7-33.7); MCHC 32.1 g/dl (32.0-36.0); MEAN CELL VOLUME 105.2 fl (80-96); MEAN PLT VOLUME 10.5 fl (7.5-11.1); NEUT % 58.5 % (42.8-82.8); PLATELET COUNT 213 10^3/uL (134-434); RBC 4.01 M/mm3 (3.60-5.2); RDW 14.9 % (11.6-15.6); WHITE BLOOD COUNT 3.1 K/mm3 (4.0-10.0)
[2022-09-17 19:01] LABS: POTASSIUM 5.3 mmol/L (3.5-5.1)
[2022-09-17 19:03] LABS: CALCIUM 9.4 mg/dL (8.5-10.1)
[2022-09-17 19:04] LABS: ALBUMIN 4.3 g/dl (3.4-5.0); BLOOD UREA NITROGEN 10.4 mg/dL (7-18); MAGNESIUM 2.2 mg/dL (1.8-2.4)
[2022-09-17 19:08] LABS: BILIRUBIN,TOTAL 0.4 mg/dL (0.2-1); CREATININE 0.6 mg/dL (0.55-1.3); TOT PROT 7.5 g/dl (6.4-8.2)
[2022-09-17] MEDS ORDERED: MEROPENEM 1 GM in DEXTROSE 5%-WATER 100 ML IVPB ONE (19:10)
[2022-09-17 19:34] LABS: ANISOCYTOSIS 1+; MACROCYTOSIS 3+
[2022-09-17] MEDS ORDERED: MEROPENEM 1 GM VIAL (RESTRICTED TO ID) IVPB ONE (21:35)
[2022-09-18 06:25] LABS: HEMATOCRIT 39.9 % (32.4-45.2); HEMOGLOBIN 12.8 GM/dL (10.7-15.3); MCH 33.9 pg (25.7-33.7); MEAN CELL VOLUME 105.9 fl (80-96); MEAN PLT VOLUME 10.4 fl (7.5-11.1); PLATELET COUNT 186 10^3/uL (134-434); RBC 3.77 M/mm3 (3.60-5.2); RDW 14.5 % (11.6-15.6)
[2022-09-18 06:32] LABS: POTASSIUM 3.9 mmol/L (3.5-5.1)
[2022-09-18 06:35] LABS: ALBUMIN 4.2 g/dl (3.4-5.0); BLOOD UREA NITROGEN 7.2 mg/dL (7-18); CALCIUM 9.3 mg/dL (8.5-10.1)
[2022-09-18 06:36] LABS: WHITE BLOOD COUNT 3.7 K/mm3 (4.0-10.0)
[2022-09-18 06:39] LABS: BILIRUBIN,TOTAL 0.7 mg/dL (0.2-1); CREATININE 0.6 mg/dL (0.55-1.3); TOT PROT 7.1 g/dl (6.4-8.2)
[2022-09-18] MEDS: INSULIN SLIDING SCALE (NOVOLOG) 1 VIAL SQ SCH ×4 (07:22→21:55)
[2022-09-18] MEDS ORDERED: LORazepam 2 MG/ML SDV VIAL IVPUSH SCH (10:00)
[2022-09-18] MEDS: THIAMINE HCL 200 MG/2 ML VIAL IVPB SCH (11:18)
[2022-09-18] MEDS: ENOXAPARIN NA (PORCINE) 40 MG/0.4 ML DISP.SYRIN SQ SCH (11:18)
[2022-09-18] MEDS: NICOTINE 21 MG/24 HOURS TOPICAL PATCH TD SCH (11:19)
[2022-09-18] MEDS: FOLIC ACID 1 MG TABLET (FP) PO SCH (11:19)
[2022-09-18] MEDS: LACTATED RINGERS SOLUTION 1,000 ML/1,000 ML INFUS.BAG IV SCH (11:20)
[2022-09-18] MEDS ORDERED: LORazepam 2 MG TABLET PO ONE (14:00)
[2022-09-18] MEDS ORDERED: LORazepam 1 MG TABLET PO ONE (14:00)
[2022-09-18] MEDS ORDERED: CIPROFLOXACIN 400 MG/D5W 400 MG/200 ML IVPB IVPB ONE (14:30)
[2022-09-18] MEDS: LORazepam 1 MG TABLET PO SCH ×3 (15:14→23:06)
[2022-09-19] MEDS: LORazepam 1 MG TABLET PO SCH ×4 (05:36→22:49)
[2022-09-19] MEDS: LACTATED RINGERS SOLUTION 1,000 ML/1,000 ML INFUS.BAG IV SCH ×2 (05:38→11:03)
[2022-09-19] MEDS: INSULIN SLIDING SCALE (NOVOLOG) 1 VIAL SQ SCH ×4 (06:22→21:32)
[2022-09-19] MEDS: LORazepam 1 MG TABLET PO PRN ×2 (08:56→13:30)
[2022-09-19] MEDS: ENOXAPARIN NA (PORCINE) 40 MG/0.4 ML DISP.SYRIN SQ SCH (09:01)
[2022-09-19] MEDS: NICOTINE 21 MG/24 HOURS TOPICAL PATCH TD SCH (09:01)
[2022-09-19] MEDS: FOLIC ACID 1 MG TABLET (FP) PO SCH (09:02)
[2022-09-19] MEDS: THIAMINE HCL 200 MG/2 ML VIAL IVPB SCH ×3 (09:02→21:25)
[2022-09-19] MEDS ORDERED: THIAMINE HCL 100 MG TABLET (FP) PO SCH (14:00)
[2022-09-19] MEDS ORDERED: INSULIN (NOVOLOG) ASPART 100 UNITS/ML 10ML VIAL ONE (21:03)
[2022-09-20] MEDS: THIAMINE HCL 200 MG/2 ML VIAL IVPB SCH ×3 (05:58→21:40)
[2022-09-20] MEDS: LORazepam 1 MG TABLET PO SCH ×4 (05:58→23:32)
[2022-09-20] MEDS: INSULIN SLIDING SCALE (NOVOLOG) 1 VIAL SQ SCH ×4 (06:02→21:52)
[2022-09-20 09:11] LABS: HEMATOCRIT 40.7 % (32.4-45.2); HEMOGLOBIN 13.2 GM/dL (10.7-15.3); MCH 33.8 pg (25.7-33.7); MCHC 32.3 g/dl (32.0-36.0); MEAN CELL VOLUME 104.6 fl (80-96); MEAN PLT VOLUME 10.1 fl (7.5-11.1); PLATELET COUNT 202 10^3/uL (134-434); RDW 14.3 % (11.6-15.6); WHITE BLOOD COUNT 2.7 K/mm3 (4.0-10.0)
[2022-09-20] MEDS: FOLIC ACID 1 MG TABLET (FP) PO SCH (09:15)
[2022-09-20] MEDS: NICOTINE 21 MG/24 HOURS TOPICAL PATCH TD SCH (09:15)
[2022-09-20] MEDS: ENOXAPARIN NA (PORCINE) 40 MG/0.4 ML DISP.SYRIN SQ SCH (09:15)
[2022-09-20 10:07] LABS: BLOOD UREA NITROGEN 19.1 mg/dL (7-18); CALCIUM 9.4 mg/dL (8.5-10.1); MAGNESIUM 2.1 mg/dL (1.8-2.4)
[2022-09-20 10:09] LABS: PHOSPHOROUS 4.4 mg/dL (2.5-4.9)
[2022-09-20 10:10] LABS: CREATININE 0.9 mg/dL (0.55-1.3)
[2022-09-20 10:11] LABS: BILIRUBIN,TOTAL 1.2 mg/dL (0.2-1)
[2022-09-20 10:28] LABS: ALBUMIN 3.3 g/dl (3.4-5.0)
[2022-09-20] MEDS: LORazepam 1 MG TABLET PO PRN ×2 (14:13→18:56)
[2022-09-20] MEDS ORDERED: LORazepam 2 MG/ML SDV VIAL IVPUSH ONE (15:00)
[2022-09-21] MEDS ORDERED: LORazepam 0.5 MG TABLET PO PRN
[2022-09-21] MEDS: LORazepam 0.5 MG TABLET PO SCH ×2 (06:03→10:36)
[2022-09-21] MEDS: THIAMINE HCL 200 MG/2 ML VIAL IVPB SCH ×3 (06:37→21:02)
[2022-09-21] MEDS: INSULIN SLIDING SCALE (NOVOLOG) 1 VIAL SQ SCH ×4 (06:37→21:02)
[2022-09-21] MEDS: FOLIC ACID 1 MG TABLET (FP) PO SCH (09:11)
[2022-09-21] MEDS: ENOXAPARIN NA (PORCINE) 40 MG/0.4 ML DISP.SYRIN SQ SCH (09:11)
[2022-09-21] MEDS: NICOTINE 21 MG/24 HOURS TOPICAL PATCH TD SCH (09:11)
[2022-09-21 09:45] LABS: HEMATOCRIT 38.5 % (32.4-45.2); HEMOGLOBIN 12.8 GM/dL (10.7-15.3); MCHC 33.3 g/dl (32.0-36.0); MEAN CELL VOLUME 102.3 fl (80-96); MEAN PLT VOLUME 8.9 fl (7.5-11.1); PLATELET COUNT 199 10^3/uL (134-434); RBC 3.77 M/mm3 (3.60-5.2); RDW 14.7 % (11.6-15.6); WHITE BLOOD COUNT 2.9 K/mm3 (4.0-10.0)
[2022-09-21 10:09] LABS: POTASSIUM 3.8 mmol/L (3.5-5.1)
[2022-09-21 10:11] LABS: CALCIUM 9.5 mg/dL (8.5-10.1)
[2022-09-21 10:12] LABS: ALBUMIN 3.5 g/dl (3.4-5.0); BLOOD UREA NITROGEN 11.9 mg/dL (7-18)
[2022-09-21 10:16] LABS: BILIRUBIN,TOTAL 0.4 mg/dL (0.2-1); CREATININE 0.6 mg/dL (0.55-1.3); TOT PROT 6.2 g/dl (6.4-8.2)
[2022-09-21] MEDS ORDERED: HALOPERIDOL 0.5 MG TABLET PO ONE (16:45)
[2022-09-21] MEDS ORDERED: HALOPERIDOL LACTATE 5 MG/ML IM ONE ×2 (17:54→18:05)
[2022-09-22] MEDS ORDERED: LORazepam 0.5 MG TABLET PO ONE (05:00)
[2022-09-22] MEDS ORDERED: THIAMINE HCL 100 MG TABLET (FP) PO SCH ×3 (06:00→06:45)
[2022-09-22] MEDS: INSULIN SLIDING SCALE (NOVOLOG) 1 VIAL SQ SCH ×4 (06:33→21:18)
[2022-09-22 09:51] LABS: HEMATOCRIT 40.6 % (32.4-45.2); HEMOGLOBIN 13.2 GM/dL (10.7-15.3); MCHC 32.7 g/dl (32.0-36.0); MEAN CELL VOLUME 104.1 fl (80-96); PLATELET COUNT 215 10^3/uL (134-434); RDW 14.9 % (11.6-15.6); WHITE BLOOD COUNT 3.1 K/mm3 (4.0-10.0)
[2022-09-22 10:14] LABS: POTASSIUM 3.8 mmol/L (3.5-5.1)
[2022-09-22 10:31] LABS: CALCIUM 9.6 mg/dL (8.5-10.1)
[2022-09-22 10:32] LABS: ALBUMIN 3.8 g/dl (3.4-5.0); BLOOD UREA NITROGEN 10.6 mg/dL (7-18)
[2022-09-22 10:35] LABS: CREATININE 0.6 mg/dL (0.55-1.3)
[2022-09-22 10:36] LABS: BILIRUBIN,TOTAL 0.6 mg/dL (0.2-1); TOT PROT 6.8 g/dl (6.4-8.2)
[2022-09-22] MEDS: ENOXAPARIN NA (PORCINE) 40 MG/0.4 ML DISP.SYRIN SQ SCH (10:55)
[2022-09-22] MEDS: NICOTINE 21 MG/24 HOURS TOPICAL PATCH TD SCH (10:55)
[2022-09-22] MEDS: FOLIC ACID 1 MG TABLET (FP) PO SCH (10:55)
[2022-09-22] MEDS: THIAMINE HCL 200 MG/2 ML VIAL IM SCH (11:27)
[2022-09-22] MEDS: clonazePAM 0.5 MG TABLET PO SCH (21:18)
[2022-09-23] MEDS: INSULIN SLIDING SCALE (NOVOLOG) 1 VIAL SQ SCH ×4 (06:06→21:57)
[2022-09-23] MEDS ORDERED: INSULIN (NOVOLOG) ASPART 100 UNITS/ML 10ML VIAL ONE (06:17)
[2022-09-23] MEDS: ENOXAPARIN NA (PORCINE) 40 MG/0.4 ML DISP.SYRIN SQ SCH (09:21)
[2022-09-23] MEDS: NICOTINE 21 MG/24 HOURS TOPICAL PATCH TD SCH (09:21)
[2022-09-23] MEDS: clonazePAM 0.5 MG TABLET PO SCH ×2 (09:21→21:53)
[2022-09-23] MEDS: FOLIC ACID 1 MG TABLET (FP) PO SCH (09:21)
[2022-09-23] MEDS: THIAMINE HCL 200 MG/2 ML VIAL IM SCH (09:38)
[2022-09-24] MEDS: INSULIN SLIDING SCALE (NOVOLOG) 1 VIAL SQ SCH ×4 (06:01→21:39)
[2022-09-24] MEDS: FOLIC ACID 1 MG TABLET (FP) PO SCH (09:18)
[2022-09-24] MEDS: clonazePAM 0.5 MG TABLET PO SCH ×2 (09:18→21:33)
[2022-09-24] MEDS: ENOXAPARIN NA (PORCINE) 40 MG/0.4 ML DISP.SYRIN SQ SCH (09:19)
[2022-09-24] MEDS: NICOTINE 21 MG/24 HOURS TOPICAL PATCH TD SCH (09:19)
[2022-09-24] MEDS: THIAMINE HCL 200 MG/2 ML VIAL IM SCH (09:19)
[2022-09-24 09:46] LABS: HEMATOCRIT 39.2 % (32.4-45.2); HEMOGLOBIN 12.9 GM/dL (10.7-15.3); MCH 33.9 pg (25.7-33.7); MCHC 32.8 g/dl (32.0-36.0); MEAN CELL VOLUME 103.5 fl (80-96); MEAN PLT VOLUME 10.3 fl (7.5-11.1); PLATELET COUNT 210 10^3/uL (134-434); RBC 3.79 M/mm3 (3.60-5.2); RDW 14.3 % (11.6-15.6); WHITE BLOOD COUNT 3.2 K/mm3 (4.0-10.0)
[2022-09-24 10:01] LABS: POTASSIUM 3.8 mmol/L (3.5-5.1)
[2022-09-24 10:12] LABS: BLOOD UREA NITROGEN 11.9 mg/dL (7-18); CALCIUM 9.3 mg/dL (8.5-10.1)
[2022-09-24 10:14] LABS: ALBUMIN 4.1 g/dl (3.4-5.0)
[2022-09-24 10:15] LABS: CREATININE 0.6 mg/dL (0.55-1.3)
[2022-09-24 10:17] LABS: BILIRUBIN,TOTAL 0.6 mg/dL (0.2-1); TOT PROT 7.3 g/dl (6.4-8.2)
[2022-09-24 23:59] VITALS: BMI 29.0
[2022-09-25] MEDS: INSULIN SLIDING SCALE (NOVOLOG) 1 VIAL SQ SCH ×4 (06:22→22:38)
[2022-09-25] MEDS: NICOTINE 21 MG/24 HOURS TOPICAL PATCH TD SCH (10:20)
[2022-09-25] MEDS: THIAMINE HCL 200 MG/2 ML VIAL IM SCH (10:23)
[2022-09-25] MEDS: clonazePAM 0.5 MG TABLET PO SCH ×2 (10:23→22:29)
[2022-09-25] MEDS: FOLIC ACID 1 MG TABLET (FP) PO SCH (10:30)
[2022-09-25] MEDS: ENOXAPARIN NA (PORCINE) 40 MG/0.4 ML DISP.SYRIN SQ SCH (16:39)
[2022-09-25] MEDS ORDERED: LORazepam 1 MG TABLET PO ONE (21:54)
[2022-09-26] MEDS: INSULIN SLIDING SCALE (NOVOLOG) 1 VIAL SQ SCH ×4 (06:32→22:01)
[2022-09-26] MEDS ORDERED: HALOPERIDOL LACTATE 5 MG/ML IM ONE ×2 (08:05→10:45)
[2022-09-26] MEDS: ENOXAPARIN NA (PORCINE) 40 MG/0.4 ML DISP.SYRIN SQ SCH (09:21)
[2022-09-26] MEDS: FOLIC ACID 1 MG TABLET (FP) PO SCH (09:22)
[2022-09-26] MEDS: NICOTINE 21 MG/24 HOURS TOPICAL PATCH TD SCH (09:22)
[2022-09-26] MEDS: THIAMINE HCL 200 MG/2 ML VIAL IM SCH (09:22)
[2022-09-26] MEDS: clonazePAM 0.5 MG TABLET PO SCH ×2 (09:22→22:00)
[2022-09-26 11:27] LABS: HEMATOCRIT 41.4 % (32.4-45.2); HEMOGLOBIN 13.8 GM/dL (10.7-15.3); MCH 33.9 pg (25.7-33.7); MCHC 33.3 g/dl (32.0-36.0); MEAN CELL VOLUME 101.9 fl (80-96); MEAN PLT VOLUME 10.1 fl (7.5-11.1); PLATELET COUNT 214 10^3/uL (134-434); RBC 4.06 M/mm3 (3.60-5.2); RDW 14.8 % (11.6-15.6); WHITE BLOOD COUNT 3.7 K/mm3 (4.0-10.0)
[2022-09-26 11:40] LABS: POTASSIUM 4.1 mmol/L (3.5-5.1)
[2022-09-26 11:43] LABS: ALBUMIN 3.9 g/dl (3.4-5.0); CALCIUM 9.5 mg/dL (8.5-10.1)
[2022-09-26 11:44] LABS: BLOOD UREA NITROGEN 17.2 mg/dL (7-18)
[2022-09-26 11:46] LABS: CREATININE 0.8 mg/dL (0.55-1.3)
[2022-09-26 11:48] LABS: BILIRUBIN,TOTAL 0.3 mg/dL (0.2-1); TOT PROT 7.1 g/dl (6.4-8.2)
[2022-09-26] MEDS ORDERED: INSULIN (NOVOLOG) ASPART 100 UNITS/ML 10ML VIAL ONE (16:59)
[2022-09-27] MEDS ORDERED: HALOPERIDOL LACTATE 5 MG/ML IM ONE ×2 (02:52→05:15)
[2022-09-27] MEDS: INSULIN SLIDING SCALE (NOVOLOG) 1 VIAL SQ SCH ×3 (06:22→16:15)
[2022-09-27] MEDS: clonazePAM 0.5 MG TABLET PO SCH (11:35)
[2022-09-27] MEDS: ENOXAPARIN NA (PORCINE) 40 MG/0.4 ML DISP.SYRIN SQ SCH (11:35)
[2022-09-27] MEDS: NICOTINE 21 MG/24 HOURS TOPICAL PATCH TD SCH (11:35)
[2022-09-27] MEDS: FOLIC ACID 1 MG TABLET (FP) PO SCH (11:35)
[2022-09-27 13:32] VITALS: BP 139/59; PULSE 58; RESP 16; TEMP 98
== END 2022-09-27 17:48 | disposition home or self-care (01) | DRG 896 ==
LOC: JER 14:45 → JERBED 20:51 → OBSVTOIN 23:43 → J6S 09-18 09:42
PROVIDERS: ADMIT Internal Medicine; ATTEND Student in an Organized Health Care Education/Training Program
PROC: HZ2ZZZZ Detoxification Services for Substance Abuse Treatment (ICD-10-PCS; principal; 2022-09-17)
DX: F10.121 Alcohol abuse with intoxication delirium (principal); G92.8 Other toxic encephalopathy; N39.0 Urinary tract infection, site not specified; F20.89 Other schizophrenia; F10.129 Alcohol abuse with intoxication, unspecified; Y90.6 Blood alcohol level of 120-199 mg/100 ml; E03.9 Hypothyroidism, unspecified; I10 Essential (primary) hypertension; E11.9 Type 2 diabetes mellitus without complications; B96.20 Unspecified Escherichia coli [E. coli] as the cause of diseases classified elsewhere; K21.9 Gastro-esophageal reflux disease without esophagitis; Z88.0 Allergy status to penicillin; M50.30 Other cervical disc degeneration, unspecified cervical region; G31.2 Degeneration of nervous system due to alcohol; F17.210 Nicotine dependence, cigarettes, uncomplicated; N63.42 Unspecified lump in left breast, subareolar
CPT/HCPCS: 36415; 70450-TC; 70551-TC; 71046-TC-FY; 71101-TC-LT-FY; 72125-TC; 80053; 80307; 81003; 82140; 82607; 82962; 83036; 83735; 84100; 84443; 84484; 85025; 85027; 87086; 87186; 93005; 93010; 97116-GP; 97162-GP; 99285-25; G0378; G0480